=== PATIENT | male | born 1955 | race Caucasian/White ===

== ENCOUNTER → 2017-03-01 | Outpatient (CLI) | payer OTHER ==
[2017-03-01 13:33] LABS: INR 0.9
== END ==
LOC: M SMT 11:40
PROVIDERS: ATTEND Internal Medicine Pulmonary Disease
DX: R91.1 Solitary pulmonary nodule (principal)

== ENCOUNTER → 2017-03-13 | Outpatient (CLI) | payer OTHER ==
[~2017-03-13] MED LIST: LIDOCAINE 1% MDV 20ML VIAL As Ordered ONE
--- NOTE | 2017-03-13 12:14 | REP ---
CT study of the chest without IV contrast: Limited exam. History: The patient was referred to our facility for CT guided needle biopsy of the right upper lobe because a CT study from [facility] dated January 30, 2017 showed a spiculated mass in the right upper lobe. Findings: The patient was interviewed and informed consent was obtained for the biopsy by Adal Fulton. The patient was placed supine on the CT scanning table and initial CT imaging was performed to plan the needle biopsy root. This initial CT imaging demonstrates that the spiculated mass observed previously has virtually resolved. There is minimal linear fibrosis against the minor fissure in its location. Since the target has resolved, the anticipated biopsy was cancelled. Impression: Planned CT guided needle biopsy of the right lung was cancelled. It was felt to be unnecessary as the target lesion has virtually resolved with only minimal adjacent linear fibrosis. An additional follow-up chest CT study could be considered in 4-6 months' time. Signed by Reji Grey MD 03/13/2017 01:18 P
== END ==
LOC: M RADPRO 08:20
PROVIDERS: ATTEND Internal Medicine Pulmonary Disease
DX: R91.1 Solitary pulmonary nodule (principal); Z87.891 Personal history of nicotine dependence; Z88.0 Allergy status to penicillin; Z88.8 Allergy status to other drugs, medicaments and biological substances; Z79.899 Other long term (current) drug therapy

== ENCOUNTER → 2017-08-24 | Outpatient (REF) | payer OTHER ==
[2017-08-24 16:55] LABS: IMMUNOGLOBULIN A 86.3 MG/DL (70-400); IMMUNOGLOBULIN G 522 MG/DL (681-1648); IMMUNOGLOBULIN M 73.5 MG/DL (40-230)
[2017-08-28 14:14] LABS: IgG SERUM (part of Subclasses) 470 mg/dL (700-1600); IgG Subclass 1 256 mg/dL (248-810); IgG Subclass 2 234 mg/dL (130-555); IgG Subclass 3 31 mg/dL (15-102); IgG Subclass 4 47 mg/dL (2-96)
== END ==
LOC: M SFHCPLAZ 11:05
PROVIDERS: ATTEND Internal Medicine Infectious Disease
DX: J18.9 Pneumonia, unspecified organism (principal)
CPT/HCPCS: 36415; 82784; 82787; 87389; G0463

== ENCOUNTER 2019-10-02 12:54 | Outpatient (RCR) | payer MEDICARE, OTHER, SELFPAY | END 2019-10-18 | LOC: M PR 12:54 | DX: J43.2 Centrilobular emphysema (principal) ==

== ENCOUNTER 2022-11-24 13:41 | Emergency (ER) | payer MEDICARE ==
[~2022-11-24] VITALS: Ht 162.6 cm; Wt 56.4 kg
[2022-11-24] MEDS ORDERED: ALBU2.5V10 NEB (13:54)
[2022-11-24] MEDS ORDERED: PRED20TA PO (13:54)
[2022-11-24] MEDS ORDERED: TREL1AER PO (13:54)
[2022-11-24] MEDS ORDERED: methylPREDNISolone 125MG 2ML VIAL IV ONE (14:40)
[2022-11-24 15:14] LABS: BASO % 0.1 % (0.0-1.0); HEMATOCRIT 35.5 % (42.0-52.0); HEMOGLOBIN 11.6 g/dl (13.5-17.5); LYMPH # 0.3 10^3/uL (1.5-5.0); LYMPH % 2.4 % (24.0-44.0); MEAN CORPUSCULAR HEMOGLOBIN 33.7 pg (27.0-33.0); MEAN CORPUSCULAR HGB CONC 32.7 g/dl (32.0-36.5); MEAN CORPUSCULAR VOLUME 103.2 fl (80.0-96.0); MONO # 0.1 10^3/uL (0.0-0.8); MONO % 1.2 % (2.0-8.0); NEUTROPHILS # 10.5 10^3/uL (1.5-8.5); NEUTROPHILS % 95.6 % (36.0-66.0); PLATELET COUNT, AUTOMATED 284 10^3/uL (150-450); RED BLOOD COUNT 3.44 10^6/uL (4.30-6.10)
[2022-11-24 15:40] LABS: ALBUMIN 3.3 G/DL (3.2-5.2); ALKALINE PHOSPHATASE 69 U/L (46-116); ALT/SGPT 17 U/L (7.0-40); AST/SGOT 24 U/L (<34); BILIRUBIN,DIRECT 0.3 MG/DL (<0.4); BILIRUBIN,TOTAL 0.8 MG/DL (0.3-1.2); BLOOD UREA NITROGEN 25 MG/DL (9-23); CARBON DIOXIDE LEVEL 30 MMOL/L (20-31); CHLORIDE LEVEL 100 MMOL/L (98-107); CREATININE FOR GFR 0.62 MG/DL (0.70-1.30); GLOMERULAR FILTRATION RATE > 60.0 (>49); GLUCOSE, FASTING 142 MG/DL (74-106); POTASSIUM SERUM 4.3 MMOL/L (3.5-5.1); SODIUM LEVEL 139 MMOL/L (136-145); THYROID STIMULATING HORMONE 0.356 uIU/ML (0.55-4.78); THYROXINE (T4) 10.8 UG/DL (4.5-10.9); TOTAL PROTEIN 6.2 G/DL (5.7-8.2)
[2022-11-24] MEDS ORDERED: ALBUTEROL SULFATE 2.5MG/0.5ML INH NEB SOLN INH ONE (15:45)
[2022-11-24] MEDS ORDERED: IPRATROPIUM 0.5MG/ALBUTEROL 2.5MG INH SOL UD 3ML (DUONEB) NEB ONE (15:45)
[2022-11-24] MEDS ORDERED: ISOVUE-370 76% 100ML VIAL As Ordered ONE (15:48)
[2022-11-24 16:14] LABS: ABG BASE EXCESS -0.8 (-2.0-2.0); ABG HCO3 24.2 MEQ/L (22.0-26.0); ABG O2 SATURATION 98.7 % (95.0-99.0); ABG PARTIAL PRESSURE CO2 41.6 mmHg (35.0-45.0); ABG STANDARD HCO3 23.8 MEQ/L (22.0-26.0); ABG TOTAL CO2 25.5 MEQ/L (23.0-31.0); ABG pH (ARTERIAL) 7.383 UNITS (7.350-7.450)
[2022-11-24] MEDS ORDERED: PRED10TA2 PO (18:16)
[2022-11-24 18:31] VITALS: BP 134/79
== END 2022-11-24 18:38 | disposition home or self-care (01) ==
LOC: M ED 13:41
DX: J44.1 Chronic obstructive pulmonary disease with (acute) exacerbation (principal); J43.9 Emphysema, unspecified; F17.200 Nicotine dependence, unspecified, uncomplicated; Z88.0 Allergy status to penicillin
CPT/HCPCS: 36600; 71045; 71275; 80048; 80076; 82803; 83880; 84436; 84443; 84484; 85025; 87040; 87486; 87581; 87633; 87798; 93005; 93041; 94640; 94760; 96374; 99285; J2930; Q9967

== ENCOUNTER 2023-01-10 09:52 | Inpatient (IN) | payer MEDICARE ==
[~2023-01-10] VITALS: Ht 167.6 cm; Wt 51.6 kg
[~2023-01-10 09:52] MED LIST changes: +ALBU2.5V10 NEB; -LIDOCAINE 1% MDV 20ML VIAL As Ordered ONE; +PRED10TA2 PO; +PRED20TA PO; +TREL1AER PO
[2023-01-10 10:33] LABS: VENOUS PH 7.311 UNITS (7.330-7.430)
[2023-01-10 10:34] LABS: VENOUS BASE EXCESS 2.4 (-2.0-2.0); VENOUS HCO3 30.1 MEQ/L (23.0-27.0); VENOUS O2 SATURATION 58.3 % (60.0-80.0); VENOUS PARTIAL PRESSURE O2 34.6 mmHg (30.0-50.0); VENOUS STANDARD HCO3 25.7 MEQ/L
[2023-01-10 10:46] LABS: BASO % 0.3 % (0.0-1.0); EOS # 0.1 10^3/uL (0.0-0.5); EOS % 2.1 % (0.0-3.0); HEMATOCRIT 36.4 % (42.0-52.0); HEMOGLOBIN 11.9 g/dl (13.5-17.5); LYMPH # 0.5 10^3/uL (1.5-5.0); MEAN CORPUSCULAR HEMOGLOBIN 33.9 pg (27.0-33.0); MEAN CORPUSCULAR HGB CONC 32.7 g/dl (32.0-36.5); MEAN CORPUSCULAR VOLUME 103.7 fl (80.0-96.0); MONO # 0.6 10^3/uL (0.0-0.8); NEUTROPHILS # 5.4 10^3/uL (1.5-8.5); NEUTROPHILS % 81.2 % (36.0-66.0); PLATELET COUNT, AUTOMATED 189 10^3/uL (150-450); RED BLOOD COUNT 3.51 10^6/uL (4.30-6.10); WHITE BLOOD COUNT 6.7 10^3/uL (4.0-10.0)
[2023-01-10] MEDS: IPRATROPIUM 0.5MG/ALBUTEROL 2.5MG INH SOL UD 3ML (DUONEB) NEB SCH ×4 (10:55→20:48)
[2023-01-10 11:12] LABS: ALBUMIN 3.1 G/DL (3.2-5.2); ALKALINE PHOSPHATASE 80 U/L (46-116); ALT/SGPT 25 U/L (7.0-40); AST/SGOT 40 U/L (<34); BILIRUBIN,DIRECT 0.3 MG/DL (<0.4); BILIRUBIN,TOTAL 0.9 MG/DL (0.3-1.2); BLOOD UREA NITROGEN 19 MG/DL (9-23); CARBON DIOXIDE LEVEL 30 MMOL/L (20-31); CHLORIDE LEVEL 101 MMOL/L (98-107); CREATININE FOR GFR 0.71 MG/DL (0.70-1.30); GLOMERULAR FILTRATION RATE > 60.0 (>49); GLUCOSE, FASTING 108 MG/DL (74-106); POTASSIUM SERUM 3.8 MMOL/L (3.5-5.1); SODIUM LEVEL 140 MMOL/L (136-145); TOTAL PROTEIN 5.7 G/DL (5.7-8.2)
[2023-01-10 11:15] LABS: THYROID STIMULATING HORMONE 0.712 uIU/ML (0.55-4.78)
[2023-01-10] MEDS ORDERED: MELO7.5T35 PO (12:01)
[2023-01-10] MEDS ORDERED: ROFL500T PO (12:01)
[2023-01-10] MEDS ORDERED: FAMO40TA3 PO (12:01)
[2023-01-10] MEDS ORDERED: OXYC10TA12 PO (12:01)
[2023-01-10] MEDS ORDERED: DALI1TAB2 PO (12:01)
[2023-01-10] MEDS ORDERED: NORCO, ANEXSIA 5/325MG TABLET (HYDROcodone/ACETAMINOPHEN) PO ONE (12:30)
[2023-01-10] MEDS ORDERED: methylPREDNISolone 125MG 2ML VIAL IV ONE (12:35)
[2023-01-10] MEDS ORDERED: IPRATROPIUM 0.5MG/ALBUTEROL 2.5MG INH SOL UD 3ML (DUONEB) NEB PRN (14:55)
[2023-01-10] MEDS ORDERED: ALBU8.5H INH (15:00)
[2023-01-10] MEDS ORDERED: HOME MED LIST COMPLETE! XX SCH (15:05)
[2023-01-10] MEDS ORDERED: ISOVUE-370 76% 100ML VIAL As Ordered ONE (15:31)
[2023-01-10 16:12] LABS: ABG BASE EXCESS -0.1 (-2.0-2.0); ABG HCO3 24.8 MEQ/L (22.0-26.0); ABG O2 SATURATION 97.4 % (95.0-99.0); ABG PARTIAL PRESSURE CO2 41.6 mmHg (35.0-45.0); ABG PARTIAL PRESSURE O2 102.4 mmHg (75.0-100.0); ABG STANDARD HCO3 24.4 MEQ/L (22.0-26.0); ABG TOTAL CO2 26.1 MEQ/L (23.0-31.0); ABG pH (ARTERIAL) 7.394 UNITS (7.350-7.450)
[2023-01-10 16:41] LABS: CK-MB VALUE MASS 2.1 NG/ML (<3.6); MAGNESIUM LEVEL 1.7 MG/DL (1.8-2.4)
[2023-01-10 16:44] LABS: MB/CK RELATIVE INDEX 6.56 (< OR =4)
[2023-01-10 18:40] VITALS: BP 131/78
[2023-01-10] MEDS: AZITHROMYCIN 250MG TABLET PO SCH (18:44)
[2023-01-10] MEDS ORDERED: MAG SULF 1GM/100ML (MAG RUN) 1 GM in IV 1 EA IV ONE (18:50)
[2023-01-10] MEDS ORDERED: LORazepam 2 MG TAB PO PRN (19:45)
[2023-01-10 19:57] LABS: MB/CK RELATIVE INDEX 6.52 (< OR =4)
[2023-01-10 20:00] VITALS: BP 115/69
[2023-01-10 21:00] VITALS: BP 115/67
[2023-01-10] MEDS: THIAMINE 100 MG TAB PO SCH (21:22)
[2023-01-10] MEDS: guaiFENesin ER 600 MG TAB PO SCH (21:22)
[2023-01-10] MEDS: HEPARIN SOD (PORCINE) 5000UNITS/ML 1ML VIAL/SYRINGE SC SCH (21:22)
[2023-01-10 22:44] VITALS: O2SAT 96
[2023-01-11] MEDS: methylPREDNISolone 40MG 1ML VIAL IV SCH ×2 (01:11→13:00)
[2023-01-11] MEDS: IPRATROPIUM 0.5MG/ALBUTEROL 2.5MG INH SOL UD 3ML (DUONEB) NEB SCH ×4 (03:24→19:02)
[2023-01-11] MEDS: HEPARIN SOD (PORCINE) 5000UNITS/ML 1ML VIAL/SYRINGE SC SCH ×3 (05:35→21:34)
[2023-01-11 06:00] VITALS: BP 119/69
[2023-01-11 06:24] LABS: HEMATOCRIT 31.5 % (42.0-52.0); HEMOGLOBIN 10.2 g/dl (13.5-17.5); MEAN CORPUSCULAR HEMOGLOBIN 33.1 pg (27.0-33.0); MEAN CORPUSCULAR HGB CONC 32.4 g/dl (32.0-36.5); MEAN CORPUSCULAR VOLUME 102.3 fl (80.0-96.0); PLATELET COUNT, AUTOMATED 194 10^3/uL (150-450); RED BLOOD COUNT 3.08 10^6/uL (4.30-6.10); WHITE BLOOD COUNT 4.3 10^3/uL (4.0-10.0)
[2023-01-11 06:40] LABS: BLOOD UREA NITROGEN 22 MG/DL (9-23); CALCIUM LEVEL 8.2 MG/DL (8.3-10.6); CARBON DIOXIDE LEVEL 31 MMOL/L (20-31); CHLORIDE LEVEL 102 MMOL/L (98-107); CREATININE FOR GFR 0.65 MG/DL (0.70-1.30); GLOMERULAR FILTRATION RATE > 60.0 (>49); GLUCOSE, FASTING 116 MG/DL (74-106); SODIUM LEVEL 139 MMOL/L (136-145)
[2023-01-11] MEDS ORDERED: PANTOPRAZOLE 40MG TAB (PROTONIX) PO ONE (06:50)
[2023-01-11] MEDS: FAMOTIDINE 20 MG TAB PO SCH (08:43)
[2023-01-11] MEDS: FOLIC ACID 1MG TAB PO SCH (08:43)
[2023-01-11] MEDS: THIAMINE 100 MG TAB PO SCH ×2 (08:43→21:31)
[2023-01-11] MEDS: MULTIVITAMINS/MINERALS THERAP 1 TAB PO SCH (08:44)
[2023-01-11] MEDS: guaiFENesin ER 600 MG TAB PO SCH ×2 (08:44→21:31)
[2023-01-11] MEDS: oxyCODONE 5MG TAB PO PRN ×2 (08:48→15:24)
[2023-01-11 14:00] VITALS: BP 117/71
[2023-01-11] MEDS: AZITHROMYCIN 250MG TABLET PO SCH (18:16)
[2023-01-11 22:00] VITALS: BP 118/85
[2023-01-12] MEDS: methylPREDNISolone 40MG 1ML VIAL IV SCH (00:11)
[2023-01-12] MEDS: IPRATROPIUM 0.5MG/ALBUTEROL 2.5MG INH SOL UD 3ML (DUONEB) NEB SCH ×4 (00:30→20:45)
[2023-01-12] MEDS: HEPARIN SOD (PORCINE) 5000UNITS/ML 1ML VIAL/SYRINGE SC SCH (05:43)
[2023-01-12 06:00] VITALS: BP 132/85
[2023-01-12 06:27] LABS: HEMOGLOBIN 9.9 g/dl (13.5-17.5); MEAN CORPUSCULAR HEMOGLOBIN 34.1 pg (27.0-33.0); MEAN CORPUSCULAR VOLUME 103.4 fl (80.0-96.0); PLATELET COUNT, AUTOMATED 184 10^3/uL (150-450); WHITE BLOOD COUNT 7.5 10^3/uL (4.0-10.0)
[2023-01-12 06:59] LABS: BLOOD UREA NITROGEN 28 MG/DL (9-23); CALCIUM LEVEL 8.8 MG/DL (8.3-10.6); CARBON DIOXIDE LEVEL 31 MMOL/L (20-31); CHLORIDE LEVEL 102 MMOL/L (98-107); CREATININE FOR GFR 0.63 MG/DL (0.70-1.30); GLOMERULAR FILTRATION RATE > 60.0 (>49); GLUCOSE, FASTING 128 MG/DL (74-106); MAGNESIUM LEVEL 1.9 MG/DL (1.8-2.4); POTASSIUM SERUM 4.8 MMOL/L (3.5-5.1); SODIUM LEVEL 139 MMOL/L (136-145)
[2023-01-12] MEDS: FOLIC ACID 1MG TAB PO SCH (08:29)
[2023-01-12] MEDS: guaiFENesin ER 600 MG TAB PO SCH ×2 (08:29→20:25)
[2023-01-12] MEDS: MULTIVITAMINS/MINERALS THERAP 1 TAB PO SCH (08:30)
[2023-01-12] MEDS: FAMOTIDINE 20 MG TAB PO SCH (08:30)
[2023-01-12] MEDS: THIAMINE 100 MG TAB PO SCH (08:30)
[2023-01-12] MEDS: oxyCODONE 5MG TAB PO PRN (08:32)
[2023-01-12 09:00] VITALS: O2SAT 96
[2023-01-12] MEDS: SENOKOT S TAB PO SCH ×2 (09:39→20:25)
[2023-01-12] MEDS ORDERED: ACETAMINOPHEN TAB 650MG DOSE (2X325MG) PO PRN (12:15)
[2023-01-12] MEDS ORDERED: ONDANSETRON 4MG 2ML VIAL IV PRN (12:15)
[2023-01-12] MEDS ORDERED: LORazepam 1 MG TAB PO PRN (12:15)
[2023-01-12] MEDS ORDERED: ONDANSETRON 4MG ORAL DISINTEGRATING TAB PO PRN (12:15)
[2023-01-12] MEDS ORDERED: SCOPOLAMINE 1MG TRANSDERMAL PATCH TOP PRN (12:15)
[2023-01-12] MEDS ORDERED: BISACODYL 10MG SUPP PR PRN (12:15)
[2023-01-12] MEDS ORDERED: LORazepam 2 MG/ML 1ML VIAL IV PRN (12:15)
[2023-01-12] MEDS ORDERED: ACETAMINOPHEN 650MG SUPP PR PRN (12:15)
[2023-01-12] MEDS ORDERED: HYOSCYAMINE SULFATE 0.125 MG SUBL TABLET PO PRN (12:15)
[2023-01-12] MEDS ORDERED: ATROPINE SULFATE 1% OPHTH SOLN 2ML BTL SL PRN (12:15)
[2023-01-12] MEDS ORDERED: FLEET ENEMA PR PRN (12:15)
[2023-01-12] MEDS: MORPHINE 10MG/0.5ML ORAL CONCENTRATE SOLUTION U/D SL PRN (14:11)
[2023-01-12 14:33] LABS: CK-MB VALUE MASS 2.1 NG/ML (<3.6)
[2023-01-12 14:35] LABS: MB/CK RELATIVE INDEX 6.56 (< OR =4)
[2023-01-12 17:08] LABS: MYCOPLASMA PNEUMONIAE IgG <100 U/mL (0-99); MYCOPLASMA PNEUMONIAE IgM <770 U/mL (0-769)
[2023-01-12] MEDS: MORPHINE 2 MG/ML 1ML VIAL IV PRN (17:51)
[2023-01-13] MEDS: IPRATROPIUM 0.5MG/ALBUTEROL 2.5MG INH SOL UD 3ML (DUONEB) NEB SCH ×4 (01:10→20:25)
[2023-01-13] MEDS: oxyCODONE 5MG TAB PO PRN ×2 (07:24→17:18)
[2023-01-13] MEDS: ADVAIR HFA 230/21MCG INHALER INH SCH ×2 (08:00→20:00)
[2023-01-13] MEDS: MORPHINE 10MG/0.5ML ORAL CONCENTRATE SOLUTION U/D SL PRN ×3 (09:52→14:19)
[2023-01-13] MEDS: guaiFENesin ER 600 MG TAB PO SCH ×2 (09:52→20:05)
[2023-01-13] MEDS: SENOKOT S TAB PO SCH ×2 (09:52→20:05)
[2023-01-13] MEDS: MORPHINE 2 MG/ML 1ML VIAL IV PRN (21:39)
[2023-01-14] MEDS: IPRATROPIUM 0.5MG/ALBUTEROL 2.5MG INH SOL UD 3ML (DUONEB) NEB SCH ×4 (01:26→19:57)
[2023-01-14] MEDS: oxyCODONE 5MG TAB PO PRN ×2 (03:23→11:51)
[2023-01-14] MEDS: ADVAIR HFA 230/21MCG INHALER INH SCH ×2 (07:20→19:57)
[2023-01-14] MEDS: MORPHINE 2 MG/ML 1ML VIAL IV PRN (08:08)
[2023-01-14] MEDS: SENOKOT S TAB PO SCH ×2 (08:18→20:16)
[2023-01-14] MEDS: guaiFENesin ER 600 MG TAB PO SCH ×2 (08:18→20:16)
[2023-01-14] MEDS ORDERED: PILL CUTTER 1 EACH XX ONE (19:39)
[2023-01-14] MEDS: MORPHINE 30 MG TAB **MSIR PO PRN (19:45)
[2023-01-14] MEDS ORDERED: methylPREDNISolone 40MG 1ML VIAL IV ONE (19:50)
[2023-01-14 20:28] VITALS: BP 110/76
[2023-01-14] MEDS ORDERED: KETOROLAC 30 MG/ML 1ML VIAL IV ONE (20:40)
[2023-01-14] MEDS ORDERED: METOCLOPRAMIDE INJ 10MG/2ML VIAL IV ONE (20:40)
[2023-01-14 22:00] VITALS: BP 128/102
[2023-01-15 02:35] VITALS: BP 100/70
[2023-01-15] MEDS: IPRATROPIUM 0.5MG/ALBUTEROL 2.5MG INH SOL UD 3ML (DUONEB) NEB SCH ×4 (02:41→19:38)
[2023-01-15 06:00] VITALS: BP 99/56
[2023-01-15] MEDS: ADVAIR HFA 230/21MCG INHALER INH SCH ×2 (07:16→19:38)
[2023-01-15] MEDS: TIOTROPIUM INHALER/CAPSULE (SPIRIVA) INH SCH (07:16)
[2023-01-15] MEDS: methylPREDNISolone 40MG 1ML VIAL IV SCH (09:07)
[2023-01-15] MEDS: SENOKOT S TAB PO SCH ×2 (09:08→20:12)
[2023-01-15] MEDS: guaiFENesin ER 600 MG TAB PO SCH ×2 (09:09→20:12)
[2023-01-15] MEDS: MORPHINE 30 MG TAB **MSIR PO PRN (09:09)
[2023-01-15 09:34] VITALS: O2SAT 96
[2023-01-15] MEDS ORDERED: SENNA 8.6 MG TAB (SENOKOT) PO PRN (12:20)
[2023-01-15] MEDS ORDERED: MIRALAX *UNIT DOSE* 17GM PACKET PO PRN (12:20)
[2023-01-15 14:00] VITALS: BP 120/74
[2023-01-15 20:00] VITALS: BP 111/67
[2023-01-16] MEDS: IPRATROPIUM 0.5MG/ALBUTEROL 2.5MG INH SOL UD 3ML (DUONEB) NEB SCH ×2 (00:49→07:43)
[2023-01-16] MEDS: MORPHINE 30 MG TAB **MSIR PO PRN (01:14)
[2023-01-16] MEDS ORDERED: KETOROLAC 30 MG/ML 1ML VIAL IV ONE (03:20)
[2023-01-16 06:00] VITALS: BP 101/65
[2023-01-16] MEDS: TIOTROPIUM INHALER/CAPSULE (SPIRIVA) INH SCH (07:41)
[2023-01-16] MEDS: ADVAIR HFA 230/21MCG INHALER INH SCH (07:42)
[2023-01-16] MEDS: SENOKOT S TAB PO SCH (09:23)
[2023-01-16] MEDS: guaiFENesin ER 600 MG TAB PO SCH (09:23)
[2023-01-16] MEDS: methylPREDNISolone 40MG 1ML VIAL IV SCH (09:23)
[2023-01-16] MEDS ORDERED: MORP1SOL5 PO (10:14)
[2023-01-16] MEDS ORDERED: MSIR30TA PO (10:14)
[2023-01-16] MEDS ORDERED: BENZ200C70 PO (10:15)
[2023-01-16] MEDS ORDERED: OXYC10TA12 PO (10:17)
[2023-01-16 17:07] LABS: CHLAMYDIA PNEUMONIAE IgM <1:10 (< 1:10); CHLAMYDIA PSITTACI IgG <1:100 (< 1:100); CHLAMYDIA PSITTACI IgM <1:10 (< 1:10); CHLAMYDIA TRACHOMATIS IgG <1:100 (< 1:100); CHLAMYDIA TRACHOMATIS IgM <1:10 (< 1:10)
[2023-01-17] MEDS ORDERED: SENN-186 PO (16:38)
== END 2023-01-16 13:37 | disposition home health service (06) | DRG 202 ==
LOC: M ED 09:52 → EDBD 09:52 → M ED INP 16:51 → M MSPAV 18:32
PROVIDERS: ADMIT Internal Medicine; ATTEND Internal Medicine
PROC: B246ZZZ Ultrasonography of Right and Left Heart (ICD-10-PCS; principal; 2023-01-13)
DX: J20.6 Acute bronchitis due to rhinovirus (principal); J96.21 Acute and chronic respiratory failure with hypoxia; J96.22 Acute and chronic respiratory failure with hypercapnia; J44.0 Chronic obstructive pulmonary disease with (acute) lower respiratory infection; S22.050A Wedge compression fracture of T5-T6 vertebra, initial encounter for closed fracture; S22.080A Wedge compression fracture of T11-T12 vertebra, initial encounter for closed fracture; E87.29 Other acidosis; J44.1 Chronic obstructive pulmonary disease with (acute) exacerbation; F10.20 Alcohol dependence, uncomplicated; R07.89 Other chest pain; N28.1 Cyst of kidney, acquired; Z20.822 Contact with and (suspected) exposure to COVID-19; Z79.899 Other long term (current) drug therapy; Z88.0 Allergy status to penicillin; Z88.1 Allergy status to other antibiotic agents; Z87.891 Personal history of nicotine dependence; Z66 Do not resuscitate

== ENCOUNTER → 2023-01-17 | Outpatient (CLI) | payer MEDICARE ==
[~2023-01-17] MED LIST changes: +ALBU8.5H INH; +BENZ200C70 PO; +DALI1TAB2 PO; +FAMO40TA3 PO; +MELO7.5T35 PO; +MORP1SOL5 PO; +MSIR30TA PO; +OXYC10TA12 PO; +ROFL500T PO; +SENN-186 PO
== END ==
LOC: M PAL 11:33
PROVIDERS: ATTEND Nurse Practitioner Adult Health
DX: J44.9 Chronic obstructive pulmonary disease, unspecified (principal); M54.9 Dorsalgia, unspecified; Z99.81 Dependence on supplemental oxygen; H90.5 Unspecified sensorineural hearing loss; Z87.891 Personal history of nicotine dependence; S22.059A Unspecified fracture of T5-T6 vertebra, initial encounter for closed fracture; S22.089A Unspecified fracture of T11-T12 vertebra, initial encounter for closed fracture; Z51.5 Encounter for palliative care; F10.10 Alcohol abuse, uncomplicated; K59.00 Constipation, unspecified; R41.841 Cognitive communication deficit; Z88.0 Allergy status to penicillin; Z88.1 Allergy status to other antibiotic agents; Z79.891 Long term (current) use of opiate analgesic; Z79.899 Other long term (current) drug therapy; Z79.51 Long term (current) use of inhaled steroids

== ENCOUNTER → 2023-01-19 | Outpatient (CLI) | payer MEDICARE ==
[~2023-01-19] MED LIST changes: +ALFU10TA3 PO; +ATRO0.063 INH; +BUSP5TA PO
== END ==
LOC: M PAL 12:29
PROVIDERS: ATTEND Nurse Practitioner Adult Health
DX: J44.9 Chronic obstructive pulmonary disease, unspecified (principal); Z99.81 Dependence on supplemental oxygen; Z87.891 Personal history of nicotine dependence; S22.059D Unspecified fracture of T5-T6 vertebra, subsequent encounter for fracture with routine healing; S22.089D Unspecified fracture of T11-T12 vertebra, subsequent encounter for fracture with routine healing; Z51.5 Encounter for palliative care; F41.9 Anxiety disorder, unspecified; F10.10 Alcohol abuse, uncomplicated; F09 Unspecified mental disorder due to known physiological condition; R13.10 Dysphagia, unspecified; H90.5 Unspecified sensorineural hearing loss; K59.00 Constipation, unspecified; R53.81 Other malaise; Z87.01 Personal history of pneumonia (recurrent); Z79.51 Long term (current) use of inhaled steroids; Z79.891 Long term (current) use of opiate analgesic; Z66 Do not resuscitate; Z88.0 Allergy status to penicillin; Z88.1 Allergy status to other antibiotic agents

== ENCOUNTER 2023-01-23 11:44 | Inpatient (IN) | payer MEDICARE ==
[~2023-01-23] VITALS: Ht 162.6 cm; Wt 52.6 kg
[~2023-01-23 11:44] MED LIST changes: -ALFU10TA3 PO; -ATRO0.063 INH; -BUSP5TA PO
[2023-01-23] MEDS ORDERED: BUSP5TA PO (12:09)
[2023-01-23 12:38] LABS: VENOUS BASE EXCESS 3.7 (-2.0-2.0); VENOUS HCO3 29.1 MMOL/L (23.0-27.0); VENOUS O2 SATURATION 98.4 % (60.0-80.0); VENOUS PARTIAL PRESSURE CO2 47.8 mmHg (38.0-50.0); VENOUS PARTIAL PRESSURE O2 138.4 mmHg (30.0-50.0); VENOUS PH 7.403 UNITS (7.330-7.430); VENOUS STANDARD HCO3 27.8 MMOL/L; VENOUS TOTAL CO2 30.6 MMOL/L (24.0-28.0)
[2023-01-23 12:44] LABS: BASO # 0.1 10^3/uL (0.0-0.2); BASO % 0.3 % (0.0-1.0); EOS # 0.1 10^3/uL (0.0-0.5); EOS % 0.3 % (0.0-3.0); HEMATOCRIT 30.8 % (42.0-52.0); LYMPH # 0.5 10^3/uL (1.5-5.0); LYMPH % 2.3 % (24.0-44.0); MEAN CORPUSCULAR HGB CONC 32.5 g/dl (32.0-36.5); MEAN CORPUSCULAR VOLUME 104.8 fl (80.0-96.0); MONO # 1.4 10^3/uL (0.0-0.8); MONO % 5.7 % (2.0-8.0); NEUTROPHILS # 21.5 10^3/uL (1.5-8.5); NEUTROPHILS % 90.6 % (36.0-66.0); PLATELET COUNT, AUTOMATED 313 10^3/uL (150-450); RED BLOOD COUNT 2.94 10^6/uL (4.30-6.10); WHITE BLOOD COUNT 23.7 10^3/uL (4.0-10.0)
[2023-01-23 13:12] LABS: ALBUMIN 2.5 G/DL (3.2-5.2); ALKALINE PHOSPHATASE 82 U/L (46-116); ALT/SGPT 21 U/L (7.0-40); AST/SGOT 25 U/L (<34); BILIRUBIN,DIRECT 0.7 MG/DL (<0.4); BILIRUBIN,TOTAL 1.5 MG/DL (0.3-1.2); BLOOD UREA NITROGEN 17 MG/DL (9-23); CALCIUM LEVEL 8.6 MG/DL (8.3-10.6); CARBON DIOXIDE LEVEL 33 MMOL/L (20-31); CHLORIDE LEVEL 104 MMOL/L (98-107); CREATININE FOR GFR 0.69 MG/DL (0.70-1.30); GLOMERULAR FILTRATION RATE > 60.0 (>49); GLUCOSE, FASTING 109 MG/DL (74-106); POTASSIUM SERUM 4.1 MMOL/L (3.5-5.1); SODIUM LEVEL 142 MMOL/L (136-145); TOTAL PROTEIN 5.1 G/DL (5.7-8.2)
[2023-01-23] MEDS ORDERED: IPRATROPIUM 0.02% SOLN 0.5MG 2.5ML NEB NEB ONE (13:20)
[2023-01-23] MEDS ORDERED: ALBUTEROL SULFATE 2.5MG/0.5ML INH NEB SOLN NEB ONE (13:20)
[2023-01-23] MEDS ORDERED: cefTRIAXone SOD 1 GM in D5W MINI-BAG PLUS 50 ML IV ONE ×2 (13:25→14:55)
[2023-01-23] MEDS ORDERED: AZITHROMYCIN 250MG TABLET PO ONE (13:25)
[2023-01-23 13:58] LABS: CK-MB VALUE MASS 5.4 NG/ML (<3.6)
[2023-01-23 13:59] LABS: CPK CREATINE PHOSPHOKINASE 153 U/L (46-171); MB/CK RELATIVE INDEX 3.52 (< OR =4)
[2023-01-23 14:03] LABS: CK-MB VALUE MASS 4.9 NG/ML (<3.6)
[2023-01-23 14:05] LABS: MB/CK RELATIVE INDEX 3.42 (< OR =4)
[2023-01-23] MEDS ORDERED: ISOVUE-370 76% 100ML VIAL As Ordered ONE (14:27)
[2023-01-23] MEDS ORDERED: BENZ200C70 PO (15:23)
[2023-01-23] MEDS ORDERED: ATRO0.063 INH (15:23)
[2023-01-23] MEDS ORDERED: OXYC10TA12 PO (15:23)
[2023-01-23] MEDS ORDERED: MSIR30TA PO (15:23)
[2023-01-23] MEDS ORDERED: ROFL500T PO (15:23)
[2023-01-23] MEDS ORDERED: ALFU10TA3 PO (15:23)
[2023-01-23] MEDS ORDERED: HOME MED LIST COMPLETE! XX SCH (15:25)
[2023-01-23 16:40] LABS: CK-MB VALUE MASS 5.2 NG/ML (<3.6)
[2023-01-23 16:43] LABS: MB/CK RELATIVE INDEX 3.19 (< OR =4)
[2023-01-23] MEDS ORDERED: SENNA 8.6 MG TAB (SENOKOT) PO PRN (17:45)
[2023-01-23] MEDS ORDERED: PILL CUTTER 1 EACH XX PRN (18:25)
[2023-01-23 20:00] VITALS: O2SAT 95
[2023-01-23] MEDS: ALBUTEROL SULFATE 2.5MG/0.5ML INH NEB SOLN NEB SCH (20:00)
[2023-01-23] MEDS: ADVAIR HFA 115/21MCG INHALER INH SCH (20:00)
[2023-01-23] MEDS: BENZONATATE 100MG CAPSULE PO SCH (20:19)
[2023-01-23] MEDS: CEFEPIME HCL 2 GM in D5W MINI-BAG PLUS 50 ML IV SCH (20:19)
[2023-01-23] MEDS: DOCUSATE SODIUM 100MG CAPSULE PO SCH (20:19)
[2023-01-23] MEDS: busPIRone 5 MG TAB PO SCH (20:23)
[2023-01-23 20:45] LABS: INR 0.98; PROTHROMBIN TIME 13.2 SECONDS (12.5-14.5)
[2023-01-23 21:00] VITALS: O2SAT 96
[2023-01-23 21:37] VITALS: BP 125/70
[2023-01-23 22:00] VITALS: O2SAT 88
[2023-01-23 23:00] VITALS: O2SAT 97
[2023-01-24] VITALS (16 sets, daily range): BP systolic 82–124; BP diastolic 56–70; O2SAT 93–99
[2023-01-24] MEDS: IPRATROPIUM HFA INHALER 12.9 GRAMS (ATROVENT HFA) INH SCH ×5 (00:48→20:07)
[2023-01-24] MEDS: ALBUTEROL SULFATE 2.5MG/0.5ML INH NEB SOLN NEB SCH ×7 (00:48→23:23)
[2023-01-24] MEDS: CEFEPIME HCL 2 GM in D5W MINI-BAG PLUS 50 ML IV SCH ×3 (05:02→22:05)
[2023-01-24 05:54] LABS: BASO % 0.1 % (0.0-1.0); HEMOGLOBIN 9.5 g/dl (13.5-17.5); LYMPH # 0.4 10^3/uL (1.5-5.0); LYMPH % 2.7 % (24.0-44.0); MEAN CORPUSCULAR HEMOGLOBIN 34.1 pg (27.0-33.0); MEAN CORPUSCULAR HGB CONC 32.8 g/dl (32.0-36.5); MEAN CORPUSCULAR VOLUME 103.9 fl (80.0-96.0); MONO # 0.3 10^3/uL (0.0-0.8); NEUTROPHILS # 13.2 10^3/uL (1.5-8.5); NEUTROPHILS % 93.7 % (36.0-66.0); PLATELET COUNT, AUTOMATED 285 10^3/uL (150-450); RED BLOOD COUNT 2.79 10^6/uL (4.30-6.10); WHITE BLOOD COUNT 14.1 10^3/uL (4.0-10.0)
[2023-01-24 06:18] LABS: BLOOD UREA NITROGEN 22 MG/DL (9-23); CALCIUM LEVEL 8.3 MG/DL (8.3-10.6); CARBON DIOXIDE LEVEL 32 MMOL/L (20-31); CHLORIDE LEVEL 103 MMOL/L (98-107); CREATININE FOR GFR 0.55 MG/DL (0.70-1.30); GLOMERULAR FILTRATION RATE > 60.0 (>49); GLUCOSE, FASTING 168 MG/DL (74-106); POTASSIUM SERUM 4.6 MMOL/L (3.5-5.1); SODIUM LEVEL 139 MMOL/L (136-145)
[2023-01-24] MEDS: ADVAIR HFA 115/21MCG INHALER INH SCH ×2 (07:46→20:07)
[2023-01-24] MEDS: MIRALAX *UNIT DOSE* 17GM PACKET PO SCH (09:00)
[2023-01-24] MEDS: ROFLUMILAST 500 MCG TABLET (PATIENT'S OWN MED) PO SCH (09:00)
[2023-01-24] MEDS: ENOXAPARIN 40MG/0.4ML SYRINGE (J1650 PER 10MG) SC SCH (09:05)
[2023-01-24] MEDS: DOCUSATE SODIUM 100MG CAPSULE PO SCH ×2 (09:06→22:04)
[2023-01-24] MEDS: BENZONATATE 100MG CAPSULE PO SCH ×3 (09:06→22:04)
[2023-01-24] MEDS: AZITHROMYCIN 250MG TABLET PO SCH (09:06)
[2023-01-24] MEDS: FAMOTIDINE 20 MG TAB PO SCH (09:06)
[2023-01-24] MEDS: busPIRone 5 MG TAB PO SCH ×3 (09:14→22:04)
[2023-01-24] MEDS: guaiFENesin/CODEINE SYRUP 5 ML UDC PO PRN (16:32)
[2023-01-24] MEDS: ONDANSETRON 4MG ORAL DISINTEGRATING TAB SL PRN (16:32)
[2023-01-24] MEDS ORDERED: NS 500 ML IV ONE (21:50)
[2023-01-25 01:10] VITALS: BP 102/60
[2023-01-25] MEDS: ALBUTEROL SULFATE 2.5MG/0.5ML INH NEB SOLN NEB SCH ×6 (02:39→23:24)
[2023-01-25] MEDS: CEFEPIME HCL 2 GM in D5W MINI-BAG PLUS 50 ML IV SCH ×3 (05:00→21:36)
[2023-01-25] MEDS: guaiFENesin/CODEINE SYRUP 5 ML UDC PO PRN (05:00)
[2023-01-25 05:40] VITALS: BP 100/63
[2023-01-25 06:06] LABS: BASO % 0.1 % (0.0-1.0); EOS % 0.1 % (0.0-3.0); HEMATOCRIT 28.3 % (42.0-52.0); LYMPH # 0.7 10^3/uL (1.5-5.0); LYMPH % 4.6 % (24.0-44.0); MEAN CORPUSCULAR HEMOGLOBIN 33.6 pg (27.0-33.0); MEAN CORPUSCULAR HGB CONC 31.8 g/dl (32.0-36.5); MEAN CORPUSCULAR VOLUME 105.6 fl (80.0-96.0); MONO # 0.6 10^3/uL (0.0-0.8); MONO % 4.3 % (2.0-8.0); NEUTROPHILS # 13.2 10^3/uL (1.5-8.5); NEUTROPHILS % 89.9 % (36.0-66.0); PLATELET COUNT, AUTOMATED 305 10^3/uL (150-450); RED BLOOD COUNT 2.68 10^6/uL (4.30-6.10); WHITE BLOOD COUNT 14.7 10^3/uL (4.0-10.0)
[2023-01-25 06:21] LABS: BLOOD UREA NITROGEN 20 MG/DL (9-23); CALCIUM LEVEL 8.2 MG/DL (8.3-10.6); CARBON DIOXIDE LEVEL 31 MMOL/L (20-31); CHLORIDE LEVEL 105 MMOL/L (98-107); CREATININE FOR GFR 0.64 MG/DL (0.70-1.30); GLOMERULAR FILTRATION RATE > 60.0 (>49); GLUCOSE, FASTING 101 MG/DL (74-106); POTASSIUM SERUM 3.8 MMOL/L (3.5-5.1); SODIUM LEVEL 139 MMOL/L (136-145)
[2023-01-25] MEDS ORDERED: guaiFENesin/CODEINE SYRUP 5 ML UDC PO PRN (07:35)
[2023-01-25] MEDS: IPRATROPIUM HFA INHALER 12.9 GRAMS (ATROVENT HFA) INH SCH ×4 (08:00→20:04)
[2023-01-25] MEDS: ADVAIR HFA 115/21MCG INHALER INH SCH ×2 (08:07→20:15)
[2023-01-25] MEDS: MIRALAX *UNIT DOSE* 17GM PACKET PO SCH (09:00)
[2023-01-25] MEDS: AZITHROMYCIN 250MG TABLET PO SCH (09:16)
[2023-01-25] MEDS: BENZONATATE 100MG CAPSULE PO SCH ×3 (09:17→21:35)
[2023-01-25] MEDS: DOCUSATE SODIUM 100MG CAPSULE PO SCH ×2 (09:17→21:35)
[2023-01-25] MEDS: FAMOTIDINE 20 MG TAB PO SCH (09:17)
[2023-01-25] MEDS: ROFLUMILAST 500 MCG TABLET (PATIENT'S OWN MED) PO SCH (09:18)
[2023-01-25] MEDS: ALFUZOSIN HCL 10 MG PO SCH (09:18)
[2023-01-25] MEDS: ENOXAPARIN 40MG/0.4ML SYRINGE (J1650 PER 10MG) SC SCH (09:18)
[2023-01-25] MEDS: busPIRone 5 MG TAB PO SCH ×3 (09:21→21:35)
[2023-01-25 14:00] VITALS: BP 106/67
[2023-01-25] MEDS: MORPHINE 30 MG TAB **MSIR PO PRN (14:12)
[2023-01-25 20:10] VITALS: BP 99/62
[2023-01-25 21:43] VITALS: BP 96/52
[2023-01-25 23:48] LABS: MAGNESIUM LEVEL 1.9 MG/DL (1.8-2.4)
[2023-01-26 02:00] VITALS: BP 97/61
[2023-01-26] MEDS: ALBUTEROL SULFATE 2.5MG/0.5ML INH NEB SOLN NEB SCH ×6 (03:28→22:45)
[2023-01-26] MEDS: BENZONATATE 100MG CAPSULE PO SCH ×3 (05:34→20:15)
[2023-01-26] MEDS: CEFEPIME HCL 2 GM in D5W MINI-BAG PLUS 50 ML IV SCH ×3 (05:34→20:16)
[2023-01-26 07:17] LABS: BASO % 0.3 % (0.0-1.0); EOS # 0.1 10^3/uL (0.0-0.5); EOS % 1.2 % (0.0-3.0); HEMATOCRIT 29.9 % (42.0-52.0); HEMOGLOBIN 9.5 g/dl (13.5-17.5); LYMPH # 0.7 10^3/uL (1.5-5.0); LYMPH % 6.4 % (24.0-44.0); MEAN CORPUSCULAR HEMOGLOBIN 34.2 pg (27.0-33.0); MEAN CORPUSCULAR HGB CONC 31.8 g/dl (32.0-36.5); MEAN CORPUSCULAR VOLUME 107.6 fl (80.0-96.0); MONO # 0.6 10^3/uL (0.0-0.8); MONO % 5.5 % (2.0-8.0); NEUTROPHILS # 9.6 10^3/uL (1.5-8.5); NEUTROPHILS % 85.4 % (36.0-66.0); PLATELET COUNT, AUTOMATED 320 10^3/uL (150-450); RED BLOOD COUNT 2.78 10^6/uL (4.30-6.10); WHITE BLOOD COUNT 11.2 10^3/uL (4.0-10.0)
[2023-01-26 07:43] LABS: BLOOD UREA NITROGEN 20 MG/DL (9-23); CALCIUM LEVEL 8.7 MG/DL (8.3-10.6); CARBON DIOXIDE LEVEL 32 MMOL/L (20-31); CHLORIDE LEVEL 105 MMOL/L (98-107); CREATININE FOR GFR 0.65 MG/DL (0.70-1.30); GLOMERULAR FILTRATION RATE > 60.0 (>49); GLUCOSE, FASTING 93 MG/DL (74-106); POTASSIUM SERUM 4.3 MMOL/L (3.5-5.1); SODIUM LEVEL 142 MMOL/L (136-145)
[2023-01-26 09:00] VITALS: BP 141/77
[2023-01-26] MEDS: METAMUCIL (PSYLLIUM) PACKET PO SCH ×2 (09:00→11:25)
[2023-01-26] MEDS: ADVAIR HFA 115/21MCG INHALER INH SCH ×2 (09:02→19:56)
[2023-01-26] MEDS: IPRATROPIUM HFA INHALER 12.9 GRAMS (ATROVENT HFA) INH SCH ×4 (09:02→19:57)
[2023-01-26] MEDS: ROFLUMILAST 500 MCG TABLET (PATIENT'S OWN MED) PO SCH (09:04)
[2023-01-26] MEDS: ALFUZOSIN HCL 10 MG PO SCH (09:04)
[2023-01-26] MEDS: busPIRone 5 MG TAB PO SCH ×3 (09:05→20:15)
[2023-01-26] MEDS: ENOXAPARIN 40MG/0.4ML SYRINGE (J1650 PER 10MG) SC SCH (09:05)
[2023-01-26] MEDS: FAMOTIDINE 20 MG TAB PO SCH (09:05)
[2023-01-26] MEDS: DOCUSATE SODIUM 100MG CAPSULE PO SCH ×2 (09:05→20:18)
[2023-01-26] MEDS: MIRALAX *UNIT DOSE* 17GM PACKET PO SCH (09:05)
[2023-01-26] MEDS: LACTOBACILLUS ACIDOPHILUS CAP (BACID) PO SCH (11:24)
[2023-01-26] MEDS: ONDANSETRON 4MG ORAL DISINTEGRATING TAB SL PRN (12:45)
[2023-01-26 14:00] VITALS: BP 121/92
[2023-01-26 14:10] LABS: BODY FLUID CULTURE Not indicated. (.); LEGIONELLA ANTIGEN URINE Negative (Negative); ORGANISM ID Not indicated. (.); SPECIMEN SOURCE Urine (.); URINE STREP PNEUMONIAE ANTIGEN Negative (Negative)
[2023-01-26] MEDS: MOM 30ML SUSPENSION UDC PO PRN (18:00)
[2023-01-26] MEDS: oxyCODONE 5MG TAB PO PRN (18:02)
[2023-01-26 20:00] VITALS: BP 110/63
[2023-01-26] MEDS: ACETAMINOPHEN TAB 650MG DOSE (2X325MG) PO PRN (20:16)
[2023-01-27] MEDS: ALBUTEROL SULFATE 2.5MG/0.5ML INH NEB SOLN NEB SCH ×8 (03:01→23:24)
[2023-01-27] MEDS: CEFEPIME HCL 2 GM in D5W MINI-BAG PLUS 50 ML IV SCH ×3 (05:11→20:57)
[2023-01-27] MEDS: BENZONATATE 100MG CAPSULE PO SCH ×3 (05:12→20:57)
[2023-01-27 06:00] VITALS: BP 127/71
[2023-01-27] MEDS: IPRATROPIUM HFA INHALER 12.9 GRAMS (ATROVENT HFA) INH SCH ×5 (07:07→19:46)
[2023-01-27] MEDS: ADVAIR HFA 115/21MCG INHALER INH SCH ×2 (07:07→19:46)
[2023-01-27 07:14] LABS: BASO # 0.1 10^3/uL (0.0-0.2); BASO % 0.4 % (0.0-1.0); EOS # 0.2 10^3/uL (0.0-0.5); EOS % 1.8 % (0.0-3.0); HEMATOCRIT 29.6 % (42.0-52.0); HEMOGLOBIN 9.1 g/dl (13.5-17.5); LYMPH # 0.6 10^3/uL (1.5-5.0); LYMPH % 5.3 % (24.0-44.0); MEAN CORPUSCULAR HEMOGLOBIN 33.1 pg (27.0-33.0); MEAN CORPUSCULAR HGB CONC 30.7 g/dl (32.0-36.5); MEAN CORPUSCULAR VOLUME 107.6 fl (80.0-96.0); MONO # 0.6 10^3/uL (0.0-0.8); MONO % 5.3 % (2.0-8.0); NEUTROPHILS # 9.7 10^3/uL (1.5-8.5); NEUTROPHILS % 86.2 % (36.0-66.0); PLATELET COUNT, AUTOMATED 280 10^3/uL (150-450); RED BLOOD COUNT 2.75 10^6/uL (4.30-6.10); WHITE BLOOD COUNT 11.2 10^3/uL (4.0-10.0)
[2023-01-27 07:39] LABS: BLOOD UREA NITROGEN 20 MG/DL (9-23); CALCIUM LEVEL 8.2 MG/DL (8.3-10.6); CARBON DIOXIDE LEVEL 32 MMOL/L (20-31); CHLORIDE LEVEL 105 MMOL/L (98-107); CREATININE FOR GFR 0.66 MG/DL (0.70-1.30); GLOMERULAR FILTRATION RATE > 60.0 (>49); GLUCOSE, FASTING 90 MG/DL (74-106); MAGNESIUM LEVEL 2.1 MG/DL (1.8-2.4); POTASSIUM SERUM 4.4 MMOL/L (3.5-5.1); SODIUM LEVEL 141 MMOL/L (136-145)
[2023-01-27] MEDS: FAMOTIDINE 20 MG TAB PO SCH (09:06)
[2023-01-27] MEDS: LACTOBACILLUS ACIDOPHILUS CAP (BACID) PO SCH (09:06)
[2023-01-27] MEDS: oxyCODONE 5MG TAB PO PRN (09:06)
[2023-01-27] MEDS: MIRALAX *UNIT DOSE* 17GM PACKET PO SCH ×2 (09:07→21:00)
[2023-01-27] MEDS: ALFUZOSIN HCL 10 MG PO SCH (09:07)
[2023-01-27] MEDS: METAMUCIL (PSYLLIUM) PACKET PO SCH ×2 (09:07→21:00)
[2023-01-27] MEDS: ROFLUMILAST 500 MCG TABLET (PATIENT'S OWN MED) PO SCH (09:07)
[2023-01-27] MEDS: ENOXAPARIN 40MG/0.4ML SYRINGE (J1650 PER 10MG) SC SCH (09:11)
[2023-01-27] MEDS: DOCUSATE SODIUM 100MG CAPSULE PO SCH ×2 (09:13→20:56)
[2023-01-27] MEDS: busPIRone 5 MG TAB PO SCH (09:13)
[2023-01-27 14:00] VITALS: BP 106/70
[2023-01-27] MEDS: MOM 30ML SUSPENSION UDC PO PRN (15:04)
[2023-01-27] MEDS: busPIRone 10 MG TAB PO SCH ×2 (16:41→20:56)
[2023-01-27] MEDS: MORPHINE 10MG/0.5ML ORAL CONCENTRATE SOLUTION U/D PO PRN (21:00)
[2023-01-27 21:10] VITALS: BP 123/74
[2023-01-28] MEDS: ALBUTEROL SULFATE 2.5MG/0.5ML INH NEB SOLN NEB SCH ×6 (03:00→23:31)
[2023-01-28] MEDS: CEFEPIME HCL 2 GM in D5W MINI-BAG PLUS 50 ML IV SCH ×3 (05:15→21:53)
[2023-01-28] MEDS: BENZONATATE 100MG CAPSULE PO SCH ×3 (05:15→21:53)
[2023-01-28] MEDS: MORPHINE 10MG/0.5ML ORAL CONCENTRATE SOLUTION U/D PO PRN ×2 (05:30→23:57)
[2023-01-28 06:00] VITALS: BP 118/72
[2023-01-28 06:14] LABS: BASO # 0.1 10^3/uL (0.0-0.2); BASO % 0.6 % (0.0-1.0); EOS # 0.3 10^3/uL (0.0-0.5); EOS % 2.2 % (0.0-3.0); HEMATOCRIT 30.2 % (42.0-52.0); HEMOGLOBIN 9.5 g/dl (13.5-17.5); LYMPH # 0.7 10^3/uL (1.5-5.0); LYMPH % 5.4 % (24.0-44.0); MEAN CORPUSCULAR HEMOGLOBIN 33.1 pg (27.0-33.0); MEAN CORPUSCULAR HGB CONC 31.5 g/dl (32.0-36.5); MEAN CORPUSCULAR VOLUME 105.2 fl (80.0-96.0); MONO # 0.5 10^3/uL (0.0-0.8); MONO % 4.1 % (2.0-8.0); NEUTROPHILS # 10.5 10^3/uL (1.5-8.5); NEUTROPHILS % 86.5 % (36.0-66.0); PLATELET COUNT, AUTOMATED 298 10^3/uL (150-450); RED BLOOD COUNT 2.87 10^6/uL (4.30-6.10); WHITE BLOOD COUNT 12.2 10^3/uL (4.0-10.0)
[2023-01-28 06:34] LABS: BLOOD UREA NITROGEN 17 MG/DL (9-23); CALCIUM LEVEL 8.4 MG/DL (8.3-10.6); CARBON DIOXIDE LEVEL 34 MMOL/L (20-31); CHLORIDE LEVEL 106 MMOL/L (98-107); CREATININE FOR GFR 0.56 MG/DL (0.70-1.30); GLOMERULAR FILTRATION RATE > 60.0 (>49); GLUCOSE, FASTING 99 MG/DL (74-106); MAGNESIUM LEVEL 2.1 MG/DL (1.8-2.4); SODIUM LEVEL 140 MMOL/L (136-145)
[2023-01-28] MEDS: IPRATROPIUM HFA INHALER 12.9 GRAMS (ATROVENT HFA) INH SCH ×4 (08:04→19:05)
[2023-01-28] MEDS: ADVAIR HFA 115/21MCG INHALER INH SCH ×2 (08:04→19:06)
[2023-01-28] MEDS: DOCUSATE SODIUM 100MG CAPSULE PO SCH ×2 (09:00→21:53)
[2023-01-28] MEDS: MIRALAX *UNIT DOSE* 17GM PACKET PO SCH ×2 (09:00→21:00)
[2023-01-28] MEDS: METAMUCIL (PSYLLIUM) PACKET PO SCH ×2 (09:00→21:00)
[2023-01-28] MEDS: FAMOTIDINE 20 MG TAB PO SCH (10:34)
[2023-01-28] MEDS: busPIRone 10 MG TAB PO SCH ×3 (10:34→21:53)
[2023-01-28] MEDS: LACTOBACILLUS ACIDOPHILUS CAP (BACID) PO SCH (10:34)
[2023-01-28] MEDS: ALFUZOSIN HCL 10 MG PO SCH (10:35)
[2023-01-28] MEDS: ENOXAPARIN 40MG/0.4ML SYRINGE (J1650 PER 10MG) SC SCH (10:35)
[2023-01-28] MEDS: ROFLUMILAST 500 MCG TABLET (PATIENT'S OWN MED) PO SCH (10:36)
[2023-01-28] MEDS: guaiFENesin/CODEINE SYRUP 5 ML UDC PO SCH ×3 (10:53→23:56)
[2023-01-28] MEDS: ACETAMINOPHEN TAB 650MG DOSE (2X325MG) PO PRN ×2 (12:54→23:57)
[2023-01-28 14:00] VITALS: BP 106/67
[2023-01-28] MEDS: MORPHINE 30 MG TAB **MSIR PO PRN (17:27)
[2023-01-28 22:00] VITALS: BP 106/66
[2023-01-29] MEDS: ALBUTEROL SULFATE 2.5MG/0.5ML INH NEB SOLN NEB SCH ×4 (03:21→15:27)
[2023-01-29] MEDS: guaiFENesin/CODEINE SYRUP 5 ML UDC PO SCH ×2 (05:48→12:14)
[2023-01-29] MEDS: BENZONATATE 100MG CAPSULE PO SCH ×2 (05:48→14:14)
[2023-01-29] MEDS: CEFEPIME HCL 2 GM in D5W MINI-BAG PLUS 50 ML IV SCH ×2 (05:49→12:52)
[2023-01-29 06:00] VITALS: BP 128/81
[2023-01-29 06:39] LABS: BASO # 0.1 10^3/uL (0.0-0.2); BASO % 0.4 % (0.0-1.0); EOS # 0.4 10^3/uL (0.0-0.5); EOS % 2.2 % (0.0-3.0); LYMPH # 0.8 10^3/uL (1.5-5.0); LYMPH % 5.1 % (24.0-44.0); MEAN CORPUSCULAR HEMOGLOBIN 34.1 pg (27.0-33.0); MEAN CORPUSCULAR HGB CONC 32.1 g/dl (32.0-36.5); MEAN CORPUSCULAR VOLUME 106.1 fl (80.0-96.0); MONO # 0.7 10^3/uL (0.0-0.8); MONO % 4.6 % (2.0-8.0); NEUTROPHILS # 13.6 10^3/uL (1.5-8.5); NEUTROPHILS % 86.8 % (36.0-66.0); PLATELET COUNT, AUTOMATED 268 10^3/uL (150-450); RED BLOOD COUNT 2.64 10^6/uL (4.30-6.10); WHITE BLOOD COUNT 15.6 10^3/uL (4.0-10.0)
[2023-01-29 06:58] LABS: BLOOD UREA NITROGEN 19 MG/DL (9-23); CALCIUM LEVEL 8.5 MG/DL (8.3-10.6); CARBON DIOXIDE LEVEL 31 MMOL/L (20-31); CHLORIDE LEVEL 105 MMOL/L (98-107); CREATININE FOR GFR 0.65 MG/DL (0.70-1.30); GLOMERULAR FILTRATION RATE > 60.0 (>49); GLUCOSE, FASTING 84 MG/DL (74-106); POTASSIUM SERUM 4.3 MMOL/L (3.5-5.1); SODIUM LEVEL 140 MMOL/L (136-145)
[2023-01-29] MEDS: ADVAIR HFA 115/21MCG INHALER INH SCH (07:31)
[2023-01-29] MEDS: IPRATROPIUM HFA INHALER 12.9 GRAMS (ATROVENT HFA) INH SCH ×3 (07:31→15:27)
[2023-01-29] MEDS: METAMUCIL (PSYLLIUM) PACKET PO SCH (09:00)
[2023-01-29] MEDS: ROFLUMILAST 500 MCG TABLET (PATIENT'S OWN MED) PO SCH (09:00)
[2023-01-29] MEDS: MIRALAX *UNIT DOSE* 17GM PACKET PO SCH (09:00)
[2023-01-29] MEDS: FAMOTIDINE 20 MG TAB PO SCH (10:00)
[2023-01-29] MEDS: ENOXAPARIN 40MG/0.4ML SYRINGE (J1650 PER 10MG) SC SCH (10:00)
[2023-01-29] MEDS: DOCUSATE SODIUM 100MG CAPSULE PO SCH (10:00)
[2023-01-29] MEDS: busPIRone 10 MG TAB PO SCH (10:00)
[2023-01-29] MEDS: LACTOBACILLUS ACIDOPHILUS CAP (BACID) PO SCH (10:00)
[2023-01-29] MEDS: ALFUZOSIN HCL 10 MG PO SCH (10:01)
[2023-01-29] MEDS: MORPHINE 30 MG TAB **MSIR PO PRN (10:02)
[2023-01-29] MEDS ORDERED: RISATAB3 PO (11:06)
[2023-01-29] MEDS ORDERED: META1POW PO (11:06)
[2023-01-29] MEDS ORDERED: MIRA1POW3 PO (11:06)
[2023-01-29] MEDS ORDERED: GUAI1SOL7 PO (11:06)
== END 2023-01-29 16:20 | disposition home or self-care (01) | DRG 177 ==
LOC: EDBD 11:44 → M ED 11:44 → M MSPAV 17:44 → M PCU 17:44 → M MSPAV 01-24 17:45
PROVIDERS: ADMIT Student in an Organized Health Care Education/Training Program; ATTEND Student in an Organized Health Care Education/Training Program
DX: J15.6 Pneumonia due to other Gram-negative bacteria (principal); I21.A1 Myocardial infarction type 2; J96.21 Acute and chronic respiratory failure with hypoxia; E43 Unspecified severe protein-calorie malnutrition; J44.0 Chronic obstructive pulmonary disease with (acute) lower respiratory infection; R64 Cachexia; I50.32 Chronic diastolic (congestive) heart failure; K21.9 Gastro-esophageal reflux disease without esophagitis; R91.8 Other nonspecific abnormal finding of lung field; N40.0 Benign prostatic hyperplasia without lower urinary tract symptoms; Z99.81 Dependence on supplemental oxygen; H91.90 Unspecified hearing loss, unspecified ear; G89.29 Other chronic pain; M54.9 Dorsalgia, unspecified; K59.00 Constipation, unspecified; Z66 Do not resuscitate; F41.9 Anxiety disorder, unspecified; Z88.0 Allergy status to penicillin; Z88.8 Allergy status to other drugs, medicaments and biological substances; Z79.899 Other long term (current) drug therapy; Z87.891 Personal history of nicotine dependence

== ENCOUNTER 2023-02-01 20:46 | Inpatient (IN) | payer MEDICARE ==
[~2023-02-01] VITALS: Ht 167.6 cm; Wt 65.0 kg
[~2023-02-01 20:46] MED LIST changes: +ALFU10TA3 PO; +ATRO0.063 INH; +BUSP5TA PO; +GUAI1SOL7 PO; +META1POW PO; +MIRA1POW3 PO; +RISATAB3 PO
[2023-02-01] MEDS ORDERED: IPRATROPIUM 0.5MG/ALBUTEROL 2.5MG INH SOL UD 3ML (DUONEB) NEB ONE ×2 (21:00)
[2023-02-01 21:19] LABS: BASO # 0.1 10^3/uL (0.0-0.2); BASO % 0.4 % (0.0-1.0); EOS # 0.2 10^3/uL (0.0-0.5); EOS % 1.1 % (0.0-3.0); HEMATOCRIT 30.8 % (42.0-52.0); LYMPH # 0.7 10^3/uL (1.5-5.0); LYMPH % 4.8 % (24.0-44.0); MEAN CORPUSCULAR HEMOGLOBIN 33.2 pg (27.0-33.0); MEAN CORPUSCULAR HGB CONC 32.5 g/dl (32.0-36.5); MEAN CORPUSCULAR VOLUME 102.3 fl (80.0-96.0); MONO # 0.9 10^3/uL (0.0-0.8); NEUTROPHILS % 87.3 % (36.0-66.0); PLATELET COUNT, AUTOMATED 295 10^3/uL (150-450); RED BLOOD COUNT 3.01 10^6/uL (4.30-6.10); WHITE BLOOD COUNT 14.9 10^3/uL (4.0-10.0)
[2023-02-01 21:47] LABS: CK-MB VALUE MASS 4.1 NG/ML (<3.6)
[2023-02-01 21:49] LABS: ALBUMIN 2.7 G/DL (3.2-5.2); ALKALINE PHOSPHATASE 78 U/L (46-116); ALT/SGPT 22 U/L (7.0-40); AST/SGOT 30 U/L (<34); BILIRUBIN,TOTAL 0.5 MG/DL (0.3-1.2); BLOOD UREA NITROGEN 19 MG/DL (9-23); CALCIUM LEVEL 8.2 MG/DL (8.3-10.6); CARBON DIOXIDE LEVEL 31 MMOL/L (20-31); CHLORIDE LEVEL 105 MMOL/L (98-107); CPK CREATINE PHOSPHOKINASE 37 U/L (46-171); CREATININE FOR GFR 0.65 MG/DL (0.70-1.30); GLOMERULAR FILTRATION RATE > 60.0 (>49); GLUCOSE, FASTING 147 MG/DL (74-106); MAGNESIUM LEVEL 1.7 MG/DL (1.8-2.4); MB/CK RELATIVE INDEX 11.08 (< OR =4); POTASSIUM SERUM 3.8 MMOL/L (3.5-5.1); SODIUM LEVEL 142 MMOL/L (136-145); TOTAL PROTEIN 5.6 G/DL (5.7-8.2)
[2023-02-01] MEDS ORDERED: methylPREDNISolone 125MG 2ML VIAL IV ONE (22:40)
[2023-02-01] MEDS ORDERED: ISOVUE-370 76% 100ML VIAL As Ordered ONE (23:07)
[2023-02-01 23:21] LABS: CK-MB VALUE MASS 4.1 NG/ML (<3.6)
[2023-02-02] MEDS ORDERED: NS 1,000 ML IV ONE (00:55)
[2023-02-02] MEDS ORDERED: LEVALBUTEROL HFA 45MCG/ACT 15GM INHALER INH PRN (00:55)
[2023-02-02] MEDS ORDERED: ACETAMINOPHEN TAB 650MG DOSE (2X325MG) PO PRN (00:55)
[2023-02-02] MEDS: IPRATROPIUM 0.5MG/ALBUTEROL 2.5MG INH SOL UD 3ML (DUONEB) NEB SCH ×2 (02:55→08:22)
[2023-02-02] MEDS ORDERED: guaiFENesin/CODEINE SYRUP 5 ML UDC PO PRN (03:15)
[2023-02-02] MEDS ORDERED: MORPHINE 30 MG TAB **MSIR PO PRN (03:15)
[2023-02-02 05:46] LABS: HEMATOCRIT 29.2 % (42.0-52.0); HEMOGLOBIN 9.5 g/dl (13.5-17.5); MEAN CORPUSCULAR HEMOGLOBIN 33.1 pg (27.0-33.0); MEAN CORPUSCULAR HGB CONC 32.5 g/dl (32.0-36.5); MEAN CORPUSCULAR VOLUME 101.7 fl (80.0-96.0); PLATELET COUNT, AUTOMATED 264 10^3/uL (150-450); RED BLOOD COUNT 2.87 10^6/uL (4.30-6.10); WHITE BLOOD COUNT 11.6 10^3/uL (4.0-10.0)
[2023-02-02 06:05] LABS: BLOOD UREA NITROGEN 19 MG/DL (9-23); CALCIUM LEVEL 8.2 MG/DL (8.3-10.6); CARBON DIOXIDE LEVEL 29 MMOL/L (20-31); CHLORIDE LEVEL 105 MMOL/L (98-107); CREATININE FOR GFR 0.47 MG/DL (0.70-1.30); GLOMERULAR FILTRATION RATE > 60.0 (>49); GLUCOSE, FASTING 150 MG/DL (74-106); MAGNESIUM LEVEL 1.8 MG/DL (1.8-2.4); POTASSIUM SERUM 4.1 MMOL/L (3.5-5.1); SODIUM LEVEL 141 MMOL/L (136-145)
[2023-02-02] MEDS ORDERED: ALBU2.5V10 INH (06:07)
[2023-02-02] MEDS ORDERED: BUSP10TA79 PO (06:07)
[2023-02-02] MEDS ORDERED: HOME MED LIST COMPLETE! XX SCH (06:10)
[2023-02-02] MEDS ORDERED: PILL CUTTER 1 EACH XX PRN (06:40)
[2023-02-02] MEDS ORDERED: AZITHROMYCIN 250MG TABLET PO SCH (08:00)
[2023-02-02] MEDS ORDERED: methylPREDNISolone 40MG 1ML VIAL IV SCH (08:00)
[2023-02-02] MEDS ORDERED: TIOTROPIUM INHALER/CAPSULE (SPIRIVA) INH SCH (08:00)
[2023-02-02] MEDS ORDERED: ADVAIR HFA 45/21MCG INHALER INH SCH (08:00)
[2023-02-02] MEDS ORDERED: METAMUCIL (PSYLLIUM) PACKET PO SCH (09:00)
[2023-02-02] MEDS ORDERED: busPIRone 10 MG TAB PO SCH (09:00)
[2023-02-02] MEDS ORDERED: BENZONATATE 100MG CAPSULE PO SCH (09:00)
[2023-02-02] MEDS ORDERED: FAMOTIDINE 20 MG TAB PO SCH (09:00)
[2023-02-02] MEDS ORDERED: LACTOBACILLUS ACIDOPHILUS CAP (BACID) PO SCH (09:00)
[2023-02-02] MEDS ORDERED: MIRALAX *UNIT DOSE* 17GM PACKET PO SCH (09:00)
[2023-02-02] MEDS ORDERED: ENOXAPARIN 40MG/0.4ML SYRINGE (J1650 PER 10MG) SC SCH (09:00)
[2023-02-02] MEDS ORDERED: PRED10TA2 PO (12:14)
[2023-02-02] MEDS ORDERED: AZIT500T5 PO (12:14)
[2023-02-02 13:02] VITALS: BP 111/73
[2023-02-02] MEDS ORDERED: oxyCODONE 5MG TAB PO PRN (21:00)
[2023-02-07] MEDS ORDERED: MSIR30TA PO (12:58)
[2023-02-07] MEDS ORDERED: OXYC10TA12 PO (12:58)
== END 2023-02-02 13:30 | disposition home or self-care (01) | DRG 191 ==
LOC: M ED 20:46 → EDBD 20:46 → M ED INP 02-02 00:53
PROVIDERS: ADMIT Internal Medicine; ATTEND Internal Medicine
DX: J44.1 Chronic obstructive pulmonary disease with (acute) exacerbation (principal); J96.11 Chronic respiratory failure with hypoxia; Z66 Do not resuscitate; H91.90 Unspecified hearing loss, unspecified ear; K21.9 Gastro-esophageal reflux disease without esophagitis; F41.9 Anxiety disorder, unspecified; F32.A Depression, unspecified; S22.080D Wedge compression fracture of T11-T12 vertebra, subsequent encounter for fracture with routine healing; S22.050D Wedge compression fracture of T5-T6 vertebra, subsequent encounter for fracture with routine healing; S22.060D Wedge compression fracture of T7-T8 vertebra, subsequent encounter for fracture with routine healing; Z99.81 Dependence on supplemental oxygen; Z87.891 Personal history of nicotine dependence; Z79.899 Other long term (current) drug therapy; Z88.0 Allergy status to penicillin; Z88.1 Allergy status to other antibiotic agents; Z20.822 Contact with and (suspected) exposure to COVID-19

== ENCOUNTER → 2023-02-14 | Outpatient (CLI) | payer MEDICARE ==
[~2023-02-14] VITALS: Ht 162.6 cm; Wt 52.5 kg
[~2023-02-14] MED LIST changes: +ALBU2.5V10 INH; +AZIT500T5 PO; +BUSP10TA79 PO; +GUAI1SOL2 PO
[2023-02-14 14:16] VITALS: BP 115/71
== END ==
LOC: M PAL 14:09
PROVIDERS: ATTEND Nurse Practitioner Adult Health
DX: J44.9 Chronic obstructive pulmonary disease, unspecified (principal); Z51.5 Encounter for palliative care; Z99.81 Dependence on supplemental oxygen; Z87.01 Personal history of pneumonia (recurrent); S22.050A Wedge compression fracture of T5-T6 vertebra, initial encounter for closed fracture; S22.080A Wedge compression fracture of T11-T12 vertebra, initial encounter for closed fracture; Z79.891 Long term (current) use of opiate analgesic; R13.10 Dysphagia, unspecified; K59.00 Constipation, unspecified; F41.9 Anxiety disorder, unspecified; R53.1 Weakness; H91.90 Unspecified hearing loss, unspecified ear; R41.89 Other symptoms and signs involving cognitive functions and awareness; F10.29 Alcohol dependence with unspecified alcohol-induced disorder; Z79.51 Long term (current) use of inhaled steroids; Z88.0 Allergy status to penicillin; Z88.1 Allergy status to other antibiotic agents; Z66 Do not resuscitate; Z87.891 Personal history of nicotine dependence

== ENCOUNTER → 2023-02-14 | Outpatient (POV) | payer MEDICARE ==
[~2023-02-14] VITALS: Ht 162.6 cm; Wt 54.5 kg
[2023-02-14 10:30] VITALS: BP 112/48
== END ==
LOC: M IRPOV 10:18
PROVIDERS: ATTEND Radiology Diagnostic Radiology
DX: S22.050A Wedge compression fracture of T5-T6 vertebra, initial encounter for closed fracture (principal); S22.060A Wedge compression fracture of T7-T8 vertebra, initial encounter for closed fracture; S22.080A Wedge compression fracture of T11-T12 vertebra, initial encounter for closed fracture; J44.9 Chronic obstructive pulmonary disease, unspecified; Z79.52 Long term (current) use of systemic steroids; G47.33 Obstructive sleep apnea (adult) (pediatric); Z88.0 Allergy status to penicillin; Z87.891 Personal history of nicotine dependence; Z99.81 Dependence on supplemental oxygen
CPT/HCPCS: G0463 ×2

== ENCOUNTER 2023-02-21 19:46 | Inpatient (IN) | payer MEDICARE ==
[~2023-02-21] VITALS: Ht 167.6 cm; Wt 54.0 kg
[~2023-02-21 19:46] MED LIST changes: -GUAI1SOL2 PO
[2023-02-21] MEDS ORDERED: IPRATROPIUM 0.5MG/ALBUTEROL 2.5MG INH SOL UD 3ML (DUONEB) NEB ONE ×2 (20:00→20:30)
[2023-02-21] MEDS ORDERED: methylPREDNISolone 125MG 2ML VIAL IV ONE (20:00)
[2023-02-21] MEDS ORDERED: ALBUTEROL SULFATE 2.5MG/0.5ML INH NEB SOLN NEB ONE (20:00)
[2023-02-21 20:30] LABS: BASO # 0.1 10^3/uL (0.0-0.2); BASO % 0.3 % (0.0-1.0); EOS # 0.1 10^3/uL (0.0-0.5); EOS % 0.3 % (0.0-3.0); HEMATOCRIT 34.9 % (42.0-52.0); HEMOGLOBIN 10.9 g/dl (13.5-17.5); LYMPH # 0.4 10^3/uL (1.5-5.0); LYMPH % 1.5 % (24.0-44.0); MEAN CORPUSCULAR HEMOGLOBIN 32.7 pg (27.0-33.0); MEAN CORPUSCULAR HGB CONC 31.2 g/dl (32.0-36.5); MEAN CORPUSCULAR VOLUME 104.8 fl (80.0-96.0); MONO % 6.5 % (2.0-8.0); NEUTROPHILS # 21.8 10^3/uL (1.5-8.5); NEUTROPHILS % 90.8 % (36.0-66.0); PLATELET COUNT, AUTOMATED 271 10^3/uL (150-450); RED BLOOD COUNT 3.33 10^6/uL (4.30-6.10)
[2023-02-21 20:38] LABS: MONO # 1.6 10^3/uL (0.0-0.8)
[2023-02-21 20:50] LABS: CPK CREATINE PHOSPHOKINASE 30 U/L (46-171); MB/CK RELATIVE INDEX 6.66 (< OR =4)
[2023-02-21 20:51] LABS: ALBUMIN 3.2 G/DL (3.2-5.2); ALKALINE PHOSPHATASE 100 U/L (46-116); ALT/SGPT 16 U/L (7.0-40); AST/SGOT 19 U/L (<34); BILIRUBIN,DIRECT 0.7 MG/DL (<0.4); BILIRUBIN,TOTAL 1.6 MG/DL (0.3-1.2); BLOOD UREA NITROGEN 16 MG/DL (9-23); CALCIUM LEVEL 8.8 MG/DL (8.3-10.6); CARBON DIOXIDE LEVEL 30 MMOL/L (20-31); CHLORIDE LEVEL 98 MMOL/L (98-107); CREATININE FOR GFR 0.57 MG/DL (0.70-1.30); GLOMERULAR FILTRATION RATE > 60.0 (>49); GLUCOSE, FASTING 95 MG/DL (74-106); POTASSIUM SERUM 4.4 MMOL/L (3.5-5.1); SODIUM LEVEL 139 MMOL/L (136-145); TOTAL PROTEIN 6.3 G/DL (5.7-8.2)
[2023-02-21 20:53] LABS: THYROID STIMULATING HORMONE 0.682 uIU/ML (0.55-4.78); THYROXINE (T4) 12.8 UG/DL (4.5-10.9)
[2023-02-21 21:00] LABS: ABG BASE EXCESS -2.5 (-2.0-2.0); ABG HCO3 24.4 MMOL/L (22.0-26.0); ABG PARTIAL PRESSURE CO2 51.6 mmHg (35.0-45.0); ABG PARTIAL PRESSURE O2 117.7 mmHg (75.0-100.0); ABG STANDARD HCO3 22.4 MMOL/L. (22.0-26.0); ABG pH (ARTERIAL) 7.292 UNITS (7.350-7.450)
[2023-02-21 22:09] LABS: CK-MB VALUE MASS 2.3 NG/ML (<3.6)
[2023-02-21 22:11] LABS: MB/CK RELATIVE INDEX 6.38 (< OR =4)
[2023-02-21] MEDS ORDERED: MORPHINE 10MG/0.5ML ORAL CONCENTRATE SOLUTION U/D SL STA (22:31)
[2023-02-21] MEDS ORDERED: DOXYCYCLINE HYCLATE 100 MG in D5W MINI-BAG PLUS 100 ML IV ONE (23:55)
[2023-02-22] VITALS (10 sets, daily range): BP systolic 98–147; BP diastolic 67–83; TEMP 96.1–97.7; O2SAT 90–99
[2023-02-22] MEDS ORDERED: GUAI1SOL2 PO (00:05)
[2023-02-22] MEDS ORDERED: MIRA1POW3 PO (00:05)
[2023-02-22] MEDS ORDERED: HOME MED LIST COMPLETE! XX SCH (00:05)
[2023-02-22] MEDS ORDERED: NS 1,000 ML IV SCH (01:15)
[2023-02-22] MEDS ORDERED: NS 500 ML IV ONE (01:30)
[2023-02-22] MEDS: IPRATROPIUM 0.5MG/ALBUTEROL 2.5MG INH SOL UD 3ML (DUONEB) INH SCH ×6 (01:41→23:20)
[2023-02-22] MEDS: ALBUTEROL SULFATE 2.5MG/0.5ML INH NEB SOLN NEB PRN ×3 (02:19→05:27)
[2023-02-22] MEDS: methylPREDNISolone 40MG 1ML VIAL IV SCH ×2 (03:21→10:53)
[2023-02-22] MEDS: HEPARIN SOD (PORCINE) 5000UNITS/ML 1ML VIAL/SYRINGE SC SCH ×3 (06:00→21:59)
[2023-02-22] MEDS ORDERED: MORPHINE 10MG/0.5ML ORAL CONCENTRATE SOLUTION U/D PO PRN (06:05)
[2023-02-22 06:13] LABS: HEMATOCRIT 30.8 % (42.0-52.0); HEMOGLOBIN 9.8 g/dl (13.5-17.5)
[2023-02-22 06:50] LABS: BLOOD UREA NITROGEN 16 MG/DL (9-23); CALCIUM LEVEL 8.9 MG/DL (8.3-10.6); CARBON DIOXIDE LEVEL 28 MMOL/L (20-31); CHLORIDE LEVEL 100 MMOL/L (98-107); CREATININE FOR GFR 0.43 MG/DL (0.70-1.30); GLOMERULAR FILTRATION RATE > 60.0 (>49); GLUCOSE, FASTING 171 MG/DL (74-106); POTASSIUM SERUM 4.3 MMOL/L (3.5-5.1); SODIUM LEVEL 137 MMOL/L (136-145)
[2023-02-22 06:53] LABS: ABG BASE EXCESS 0.4 (-2.0-2.0); ABG HCO3 25.9 MMOL/L (22.0-26.0); ABG O2 SATURATION 95.1 % (95.0-99.0); ABG PARTIAL PRESSURE O2 80.4 mmHg (75.0-100.0); ABG STANDARD HCO3 24.8 MMOL/L. (22.0-26.0); ABG TOTAL CO2 27.3 MMOL/L (23.0-31.0); ABG pH (ARTERIAL) 7.369 UNITS (7.350-7.450)
[2023-02-22] MEDS ORDERED: ADVAIR HFA 45/21MCG INHALER INH SCH (08:00)
[2023-02-22] MEDS ORDERED: TIOTROPIUM INHALER/CAPSULE (SPIRIVA) INH SCH (08:00)
[2023-02-22] MEDS ORDERED: DOXYCYCLINE HYCLATE 100 MG in D5W MINI-BAG PLUS 100 ML IV SCH (09:00)
[2023-02-22] MEDS ORDERED: DOXYCYCLINE HYCLATE 100MG TABLET PO SCH (09:00)
[2023-02-22] MEDS ORDERED: ALFUZOSIN 10 MG PO SCH (09:00)
[2023-02-22] MEDS ORDERED: NALOXONE INJ 0.4MG/1ML VIAL IV PRN (10:20)
[2023-02-22] MEDS: MIRALAX *UNIT DOSE* 17GM PACKET PO SCH (10:35)
[2023-02-22] MEDS: FAMOTIDINE 20 MG TAB PO SCH (10:36)
[2023-02-22] MEDS: MORPHINE 30 MG TAB **MSIR PO PRN ×2 (10:52→23:55)
[2023-02-22] MEDS: ALPRAZolam 0.5 MG TAB PO PRN (10:53)
[2023-02-22] MEDS: TIOTROPIUM INHALER/CAPSULE (SPIRIVA) INH SCH (12:24)
[2023-02-22] MEDS: ADVAIR HFA 45/21MCG INHALER INH SCH ×2 (12:24→19:41)
[2023-02-22] MEDS: cefTRIAXone SOD 1 GM in D5W MINI-BAG PLUS 50 ML IV SCH (13:11)
[2023-02-22] MEDS: guaiFENesin ER 600 MG TAB PO SCH ×2 (13:13→21:59)
[2023-02-22] MEDS: PANTOPRAZOLE 40MG TAB (PROTONIX) PO SCH (13:13)
[2023-02-22] MEDS: methylPREDNISolone 125MG 2ML VIAL IV SCH ×2 (17:44→23:55)
[2023-02-22] MEDS: busPIRone 10 MG TAB PO SCH ×2 (17:44→21:59)
[2023-02-22] MEDS: SUCRALFATE 1 GM TAB PO SCH (17:44)
[2023-02-22] MEDS: DOXYCYCLINE HYCLATE 100MG TABLET PO SCH (21:59)
[2023-02-23] MEDS: IPRATROPIUM 0.5MG/ALBUTEROL 2.5MG INH SOL UD 3ML (DUONEB) INH SCH ×7 (02:19→23:16)
[2023-02-23 04:56] VITALS: BP 101/59; TEMP 97.5; O2SAT 90
[2023-02-23] MEDS: ALBUTEROL SULFATE 2.5MG/0.5ML INH NEB SOLN NEB PRN (05:16)
[2023-02-23] MEDS: methylPREDNISolone 125MG 2ML VIAL IV SCH ×4 (05:38→22:45)
[2023-02-23] MEDS: HEPARIN SOD (PORCINE) 5000UNITS/ML 1ML VIAL/SYRINGE SC SCH ×3 (05:38→22:45)
[2023-02-23 06:53] LABS: BASO % 0.1 % (0.0-1.0); HEMATOCRIT 29.4 % (42.0-52.0); HEMOGLOBIN 9.3 g/dl (13.5-17.5); LYMPH # 0.2 10^3/uL (1.5-5.0); LYMPH % 1.2 % (24.0-44.0); MEAN CORPUSCULAR HEMOGLOBIN 32.6 pg (27.0-33.0); MEAN CORPUSCULAR HGB CONC 31.6 g/dl (32.0-36.5); MEAN CORPUSCULAR VOLUME 103.2 fl (80.0-96.0); MONO # 0.5 10^3/uL (0.0-0.8); MONO % 2.7 % (2.0-8.0); NEUTROPHILS # 16.3 10^3/uL (1.5-8.5); NEUTROPHILS % 95.6 % (36.0-66.0); PLATELET COUNT, AUTOMATED 232 10^3/uL (150-450); RED BLOOD COUNT 2.85 10^6/uL (4.30-6.10)
[2023-02-23] MEDS: TIOTROPIUM INHALER/CAPSULE (SPIRIVA) INH SCH (07:04)
[2023-02-23] MEDS: ADVAIR HFA 45/21MCG INHALER INH SCH ×2 (07:05→19:37)
[2023-02-23 07:17] LABS: BLOOD UREA NITROGEN 22 MG/DL (9-23); CALCIUM LEVEL 8.4 MG/DL (8.3-10.6); CARBON DIOXIDE LEVEL 32 MMOL/L (20-31); CHLORIDE LEVEL 103 MMOL/L (98-107); GLOMERULAR FILTRATION RATE > 60.0 (>49); GLUCOSE, FASTING 191 MG/DL (74-106); POTASSIUM SERUM 3.5 MMOL/L (3.5-5.1); SODIUM LEVEL 141 MMOL/L (136-145)
[2023-02-23 08:00] VITALS: BP 108/71; TEMP 97.3; O2SAT 97
[2023-02-23] MEDS: guaiFENesin ER 600 MG TAB PO SCH ×2 (08:10→20:37)
[2023-02-23] MEDS: MIRALAX *UNIT DOSE* 17GM PACKET PO SCH (08:10)
[2023-02-23] MEDS: SUCRALFATE 1 GM TAB PO SCH ×2 (08:10→17:31)
[2023-02-23] MEDS: PANTOPRAZOLE 40MG TAB (PROTONIX) PO SCH (08:10)
[2023-02-23] MEDS: busPIRone 10 MG TAB PO SCH ×3 (08:11→20:37)
[2023-02-23] MEDS: FAMOTIDINE 20 MG TAB PO SCH (08:11)
[2023-02-23] MEDS: DOXYCYCLINE HYCLATE 100MG TABLET PO SCH ×2 (08:11→20:38)
[2023-02-23] MEDS ORDERED: ENTER DRUG NAME HERE (PATIENT'S OWN MED) INH SCH (09:00)
[2023-02-23] MEDS ORDERED: NON-FORMULARY 1 EA EA PO SCH (09:00)
[2023-02-23 09:53] VITALS: BP 118/67; TEMP 98; O2SAT 96
[2023-02-23] MEDS: MORPHINE 30 MG TAB **MSIR PO PRN ×2 (09:57→20:38)
[2023-02-23] MEDS ORDERED: NITROGLYCERIN 0.4MG SUBL TABLET SL PRN (10:00)
[2023-02-23 10:50] LABS: CK-MB VALUE MASS 4.5 NG/ML (<3.6)
[2023-02-23 10:52] LABS: MB/CK RELATIVE INDEX 16.66 (< OR =4)
[2023-02-23 12:31] VITALS: BP 132/69; TEMP 98; O2SAT 92
[2023-02-23] MEDS: cefTRIAXone SOD 1 GM in D5W MINI-BAG PLUS 50 ML IV SCH (12:34)
[2023-02-23] MEDS: ALPRAZolam 0.5 MG TAB PO PRN ×2 (12:34→20:37)
[2023-02-23 16:00] VITALS: BP 131/73; TEMP 97.2; O2SAT 94
[2023-02-23 19:18] VITALS: BP 120/73; TEMP 97.3; O2SAT 97
[2023-02-24 03:30] VITALS: BP 115/72; TEMP 97; O2SAT 99
[2023-02-24] MEDS: IPRATROPIUM 0.5MG/ALBUTEROL 2.5MG INH SOL UD 3ML (DUONEB) INH SCH ×6 (04:00→23:07)
[2023-02-24 05:42] LABS: BASO % 0.1 % (0.0-1.0); HEMATOCRIT 29.1 % (42.0-52.0); HEMOGLOBIN 8.8 g/dl (13.5-17.5); LYMPH # 0.2 10^3/uL (1.5-5.0); MEAN CORPUSCULAR HEMOGLOBIN 31.7 pg (27.0-33.0); MEAN CORPUSCULAR HGB CONC 30.2 g/dl (32.0-36.5); MEAN CORPUSCULAR VOLUME 104.7 fl (80.0-96.0); MONO # 0.4 10^3/uL (0.0-0.8); PLATELET COUNT, AUTOMATED 256 10^3/uL (150-450); RED BLOOD COUNT 2.78 10^6/uL (4.30-6.10); WHITE BLOOD COUNT 18.8 10^3/uL (4.0-10.0)
[2023-02-24 06:13] LABS: BLOOD UREA NITROGEN 23 MG/DL (9-23); CALCIUM LEVEL 8.7 MG/DL (8.3-10.6); CARBON DIOXIDE LEVEL 32 MMOL/L (20-31); CHLORIDE LEVEL 105 MMOL/L (98-107); CREATININE FOR GFR 0.48 MG/DL (0.70-1.30); GLOMERULAR FILTRATION RATE > 60.0 (>49); GLUCOSE, FASTING 141 MG/DL (74-106); POTASSIUM SERUM 3.8 MMOL/L (3.5-5.1); SODIUM LEVEL 143 MMOL/L (136-145)
[2023-02-24] MEDS: HEPARIN SOD (PORCINE) 5000UNITS/ML 1ML VIAL/SYRINGE SC SCH ×3 (06:25→21:25)
[2023-02-24] MEDS: methylPREDNISolone 125MG 2ML VIAL IV SCH ×4 (06:26→22:42)
[2023-02-24 07:44] VITALS: BP 109/64; TEMP 97.1; O2SAT 99
[2023-02-24] MEDS: TIOTROPIUM INHALER/CAPSULE (SPIRIVA) INH SCH (08:12)
[2023-02-24] MEDS: ADVAIR HFA 45/21MCG INHALER INH SCH ×2 (08:12→19:56)
[2023-02-24] MEDS: MIRALAX *UNIT DOSE* 17GM PACKET PO SCH (09:00)
[2023-02-24] MEDS: FAMOTIDINE 20 MG TAB PO SCH (09:56)
[2023-02-24] MEDS: busPIRone 10 MG TAB PO SCH ×3 (09:56→20:26)
[2023-02-24] MEDS: SUCRALFATE 1 GM TAB PO SCH ×2 (09:56→17:36)
[2023-02-24] MEDS: DOXYCYCLINE HYCLATE 100MG TABLET PO SCH ×2 (09:57→20:26)
[2023-02-24] MEDS: guaiFENesin ER 600 MG TAB PO SCH ×2 (09:57→20:26)
[2023-02-24] MEDS: PANTOPRAZOLE 40MG TAB (PROTONIX) PO SCH (09:57)
[2023-02-24 11:35] VITALS: BP 128/73; TEMP 96.6; O2SAT 98
[2023-02-24] MEDS: cefTRIAXone SOD 1 GM in D5W MINI-BAG PLUS 50 ML IV SCH (14:19)
[2023-02-24 16:00] VITALS: BP 135/76; TEMP 97; O2SAT 99
[2023-02-24] MEDS: MORPHINE 30 MG TAB **MSIR PO PRN (17:37)
[2023-02-24] MEDS: ACETAMINOPHEN TAB 650MG DOSE (2X325MG) PO PRN (19:58)
[2023-02-24 20:11] VITALS: BP 140/80; TEMP 97.4; O2SAT 100
[2023-02-24 20:50] VITALS: BP 115/78; TEMP 98.1; O2SAT 94
[2023-02-24] MEDS: ALPRAZolam 0.5 MG TAB PO PRN (23:03)
[2023-02-25] MEDS: methylPREDNISolone 125MG 2ML VIAL IV SCH (05:05)
[2023-02-25] MEDS: HEPARIN SOD (PORCINE) 5000UNITS/ML 1ML VIAL/SYRINGE SC SCH ×3 (05:05→22:00)
[2023-02-25 06:00] VITALS: BP 147/85; TEMP 97.9; O2SAT 90
[2023-02-25] MEDS: TIOTROPIUM INHALER/CAPSULE (SPIRIVA) INH SCH (07:04)
[2023-02-25] MEDS: IPRATROPIUM 0.5MG/ALBUTEROL 2.5MG INH SOL UD 3ML (DUONEB) INH SCH ×5 (07:04→23:19)
[2023-02-25] MEDS: ADVAIR HFA 45/21MCG INHALER INH SCH ×2 (07:04→20:20)
[2023-02-25 07:06] LABS: HEMOGLOBIN 8.9 g/dl (13.5-17.5); RED BLOOD COUNT 2.76 10^6/uL (4.30-6.10); WHITE BLOOD COUNT 13.9 10^3/uL (4.0-10.0)
[2023-02-25 07:07] LABS: BASO % 0.1 % (0.0-1.0); HEMATOCRIT 28.7 % (42.0-52.0); LYMPH # 0.3 10^3/uL (1.5-5.0); LYMPH % 2.1 % (24.0-44.0); MEAN CORPUSCULAR HEMOGLOBIN 32.2 pg (27.0-33.0); MONO # 0.2 10^3/uL (0.0-0.8); MONO % 1.3 % (2.0-8.0); NEUTROPHILS # 13.2 10^3/uL (1.5-8.5); NEUTROPHILS % 95.3 % (36.0-66.0); PLATELET COUNT, AUTOMATED 247 10^3/uL (150-450)
[2023-02-25 07:39] LABS: BLOOD UREA NITROGEN 27 MG/DL (9-23); CALCIUM LEVEL 8.8 MG/DL (8.3-10.6); CARBON DIOXIDE LEVEL 34 MMOL/L (20-31); CHLORIDE LEVEL 103 MMOL/L (98-107); CHOLESTEROL LEVEL 154 MG/DL (<200); CHOLESTEROL RISK RATIO 3.07 (<5); CREATININE FOR GFR 0.46 MG/DL (0.70-1.30); GLOMERULAR FILTRATION RATE > 60.0 (>49); GLUCOSE, FASTING 114 MG/DL (74-106); HDL CHOLESTEROL 50.1 MG/DL (>40); LDL CHOLESTEROL 90.3 MG/DL (<100); NON-HDL-C 103.9 MG/DL; POTASSIUM SERUM 3.9 MMOL/L (3.5-5.1); SODIUM LEVEL 142 MMOL/L (136-145); TRIGLYCERIDES LEVEL 68 MG/DL (<150)
[2023-02-25] MEDS ORDERED: MORPHINE 2 MG/ML 1ML VIAL IV ONE ×2 (08:00→12:00)
[2023-02-25] MEDS ORDERED: ONDANSETRON 4MG 2ML VIAL IV ONE (08:00)
[2023-02-25] MEDS ORDERED: KETOROLAC 30 MG/ML 1ML VIAL IV ONE (08:00)
[2023-02-25] MEDS ORDERED: oxyCODONE 5MG TAB PO ONE (08:00)
[2023-02-25] MEDS: MIRALAX *UNIT DOSE* 17GM PACKET PO SCH (08:24)
[2023-02-25] MEDS: FAMOTIDINE 20 MG TAB PO SCH (08:24)
[2023-02-25] MEDS: PANTOPRAZOLE 40MG TAB (PROTONIX) PO SCH (08:25)
[2023-02-25] MEDS: SUCRALFATE 1 GM TAB PO SCH ×2 (08:25→17:07)
[2023-02-25] MEDS: DOXYCYCLINE HYCLATE 100MG TABLET PO SCH ×2 (08:25→20:31)
[2023-02-25] MEDS: guaiFENesin ER 600 MG TAB PO SCH ×2 (08:25→20:31)
[2023-02-25] MEDS: busPIRone 10 MG TAB PO SCH ×3 (08:25→20:31)
[2023-02-25 11:30] VITALS: PULSE 97
[2023-02-25] MEDS ORDERED: MAALOX 30 ML SUSP *UDC PO ONE (11:40)
[2023-02-25] MEDS ORDERED: NITROGLYCERIN 0.4MG SUBL TABLET SL SCH (11:40)
[2023-02-25] MEDS: cefTRIAXone SOD 1 GM in D5W MINI-BAG PLUS 50 ML IV SCH (12:13)
[2023-02-25] MEDS: methylPREDNISolone 40MG 1ML VIAL IV SCH ×2 (12:16→17:07)
[2023-02-25] MEDS: NITROGLYCERIN 0.4MG SUBL TABLET SL PRN (12:16)
[2023-02-25 12:30] LABS: CK-MB VALUE MASS 1.6 NG/ML (<3.6); MB/CK RELATIVE INDEX 7.61 (< OR =4)
[2023-02-25] MEDS ORDERED: ISOVUE-370 76% 100ML VIAL As Ordered ONE (13:08)
[2023-02-25 14:00] VITALS: BP 126/67; TEMP 97.9; O2SAT 90
[2023-02-25] MEDS: MORPHINE 30 MG TAB **MSIR PO PRN (16:00)
[2023-02-25] MEDS: ALPRAZolam 0.5 MG TAB PO PRN ×2 (17:07→21:37)
[2023-02-25] MEDS: ACETAMINOPHEN TAB 650MG DOSE (2X325MG) PO PRN (17:07)
[2023-02-25] MEDS: KETOROLAC 30 MG/ML 1ML VIAL IV SCH (20:31)
[2023-02-25 21:47] VITALS: BP 134/79; TEMP 97.9; O2SAT 89
[2023-02-26] MEDS: methylPREDNISolone 40MG 1ML VIAL IV SCH ×3 (00:12→17:01)
[2023-02-26] MEDS: IPRATROPIUM 0.5MG/ALBUTEROL 2.5MG INH SOL UD 3ML (DUONEB) INH SCH ×6 (04:02→23:24)
[2023-02-26] MEDS: ALPRAZolam 0.5 MG TAB PO PRN ×2 (05:13→15:07)
[2023-02-26] MEDS: HEPARIN SOD (PORCINE) 5000UNITS/ML 1ML VIAL/SYRINGE SC SCH ×3 (05:13→22:00)
[2023-02-26 06:00] VITALS: BP 150/87; TEMP 98.1; O2SAT 93
[2023-02-26 06:16] LABS: BASO % 0.2 % (0.0-1.0); HEMATOCRIT 31.3 % (42.0-52.0); HEMOGLOBIN 9.6 g/dl (13.5-17.5); LYMPH # 0.4 10^3/uL (1.5-5.0); LYMPH % 2.5 % (24.0-44.0); MEAN CORPUSCULAR HEMOGLOBIN 32.1 pg (27.0-33.0); MEAN CORPUSCULAR HGB CONC 30.7 g/dl (32.0-36.5); MEAN CORPUSCULAR VOLUME 104.7 fl (80.0-96.0); MONO # 0.3 10^3/uL (0.0-0.8); MONO % 2.2 % (2.0-8.0); NEUTROPHILS # 13.4 10^3/uL (1.5-8.5); NEUTROPHILS % 92.3 % (36.0-66.0); PLATELET COUNT, AUTOMATED 274 10^3/uL (150-450); RED BLOOD COUNT 2.99 10^6/uL (4.30-6.10); WHITE BLOOD COUNT 14.5 10^3/uL (4.0-10.0)
[2023-02-26 06:45] LABS: BLOOD UREA NITROGEN 28 MG/DL (9-23); CALCIUM LEVEL 9.1 MG/DL (8.3-10.6); CARBON DIOXIDE LEVEL 33 MMOL/L (20-31); CHLORIDE LEVEL 103 MMOL/L (98-107); CREATININE FOR GFR 0.55 MG/DL (0.70-1.30); GLOMERULAR FILTRATION RATE > 60.0 (>49); GLUCOSE, FASTING 125 MG/DL (74-106); POTASSIUM SERUM 3.7 MMOL/L (3.5-5.1); SODIUM LEVEL 142 MMOL/L (136-145)
[2023-02-26] MEDS: ALBUTEROL SULFATE 2.5MG/0.5ML INH NEB SOLN NEB PRN (07:59)
[2023-02-26] MEDS: ADVAIR HFA 45/21MCG INHALER INH SCH ×2 (08:00→20:11)
[2023-02-26] MEDS: TIOTROPIUM INHALER/CAPSULE (SPIRIVA) INH SCH (08:00)
[2023-02-26] MEDS: MIRALAX *UNIT DOSE* 17GM PACKET PO SCH (08:46)
[2023-02-26] MEDS: CEFDINIR 300 MG CAP (OMNICEF) PO SCH ×2 (08:47→20:03)
[2023-02-26] MEDS: busPIRone 10 MG TAB PO SCH ×3 (08:47→20:03)
[2023-02-26] MEDS: FAMOTIDINE 20 MG TAB PO SCH (08:47)
[2023-02-26] MEDS: SUCRALFATE 1 GM TAB PO SCH ×2 (08:47→17:00)
[2023-02-26] MEDS: PANTOPRAZOLE 40MG TAB (PROTONIX) PO SCH (08:47)
[2023-02-26] MEDS: KETOROLAC 30 MG/ML 1ML VIAL IV SCH ×2 (08:47→20:03)
[2023-02-26] MEDS: DOXYCYCLINE HYCLATE 100MG TABLET PO SCH (08:47)
[2023-02-26] MEDS: guaiFENesin ER 600 MG TAB PO SCH ×2 (08:47→20:03)
[2023-02-26 14:00] VITALS: BP 150/89; TEMP 98.1; O2SAT 98
[2023-02-26] MEDS: MORPHINE 30 MG TAB **MSIR PO PRN (18:24)
[2023-02-26] MEDS ORDERED: CALCIUM CARBONATE 500 MG CHEW U/D PO ONE (19:50)
[2023-02-26] MEDS: MOM 30ML SUSPENSION UDC PO SCH ×2 (20:00→20:03)
[2023-02-26] MEDS: SENOKOT S TAB PO SCH (20:03)
[2023-02-26 21:00] VITALS: BP 148/86; O2SAT 96
[2023-02-26 22:00] VITALS: BP 149/86; TEMP 98.1; O2SAT 96
[2023-02-27] MEDS: MOM 30ML SUSPENSION UDC PO SCH
[2023-02-27] MEDS: IPRATROPIUM 0.5MG/ALBUTEROL 2.5MG INH SOL UD 3ML (DUONEB) INH SCH ×4 (03:18→15:09)
[2023-02-27] MEDS: methylPREDNISolone 40MG 1ML VIAL IV SCH (05:12)
[2023-02-27] MEDS: HEPARIN SOD (PORCINE) 5000UNITS/ML 1ML VIAL/SYRINGE SC SCH ×2 (05:12→14:00)
[2023-02-27 06:00] VITALS: BP 129/73; TEMP 97.9; O2SAT 95
[2023-02-27] MEDS: ALPRAZolam 0.5 MG TAB PO PRN (06:51)
[2023-02-27 07:46] LABS: BASO # 0.1 10^3/uL (0.0-0.2); BASO % 0.5 % (0.0-1.0); HEMOGLOBIN 11.2 g/dl (13.5-17.5); LYMPH # 0.6 10^3/uL (1.5-5.0); LYMPH % 3.6 % (24.0-44.0); MEAN CORPUSCULAR HGB CONC 30.3 g/dl (32.0-36.5); MEAN CORPUSCULAR VOLUME 105.7 fl (80.0-96.0); MONO # 0.7 10^3/uL (0.0-0.8); MONO % 3.9 % (2.0-8.0); NEUTROPHILS # 14.9 10^3/uL (1.5-8.5); NEUTROPHILS % 87.4 % (36.0-66.0); PLATELET COUNT, AUTOMATED 327 10^3/uL (150-450); WHITE BLOOD COUNT 17.1 10^3/uL (4.0-10.0)
[2023-02-27] MEDS: TIOTROPIUM INHALER/CAPSULE (SPIRIVA) INH SCH (07:55)
[2023-02-27] MEDS: ADVAIR HFA 45/21MCG INHALER INH SCH (07:56)
[2023-02-27 08:02] LABS: BLOOD UREA NITROGEN 27 MG/DL (9-23); CALCIUM LEVEL 8.4 MG/DL (8.3-10.6); CARBON DIOXIDE LEVEL 37 MMOL/L (20-31); CHLORIDE LEVEL 101 MMOL/L (98-107); CREATININE FOR GFR 0.51 MG/DL (0.70-1.30); GLOMERULAR FILTRATION RATE > 60.0 (>49); GLUCOSE, FASTING 97 MG/DL (74-106); POTASSIUM SERUM 4.3 MMOL/L (3.5-5.1); SODIUM LEVEL 144 MMOL/L (136-145)
[2023-02-27] MEDS: MIRALAX *UNIT DOSE* 17GM PACKET PO SCH (09:00)
[2023-02-27] MEDS: CEFDINIR 300 MG CAP (OMNICEF) PO SCH (09:16)
[2023-02-27] MEDS: guaiFENesin ER 600 MG TAB PO SCH (09:16)
[2023-02-27] MEDS: SUCRALFATE 1 GM TAB PO SCH ×2 (09:17→18:04)
[2023-02-27] MEDS: PANTOPRAZOLE 40MG TAB (PROTONIX) PO SCH (09:17)
[2023-02-27] MEDS: busPIRone 10 MG TAB PO SCH ×2 (09:17→18:04)
[2023-02-27] MEDS: SENOKOT S TAB PO SCH (09:17)
[2023-02-27] MEDS: FAMOTIDINE 20 MG TAB PO SCH (09:18)
[2023-02-27] MEDS: KETOROLAC 30 MG/ML 1ML VIAL IV SCH (09:19)
[2023-02-27] MEDS ORDERED: predniSONE 20 MG TAB PO SCH (12:00)
[2023-02-27 14:10] VITALS: BP 136/92
[2023-02-27] MEDS: NITROGLYCERIN 0.4MG SUBL TABLET SL PRN (14:10)
[2023-02-27 14:17] VITALS: BP 136/92; TEMP 98.6; O2SAT 95
[2023-02-27 14:19] VITALS: BP 136/92; O2SAT 95
[2023-02-27] MEDS ORDERED: NITR4TASL SL (16:35)
[2023-02-27] MEDS ORDERED: CEFD300CAP PO (16:35)
[2023-02-27] MEDS ORDERED: MUCI600T31 PO (16:35)
[2023-02-27] MEDS ORDERED: PANT40TA29 PO (16:35)
[2023-02-27] MEDS ORDERED: PRED10TA2 PO (16:35)
[2023-02-27] MEDS ORDERED: SUCR1TA PO (16:35)
[2023-02-27] MEDS ORDERED: SENN-52 PO (16:35)
[2023-02-27] MEDS ORDERED: ALBU8.5H INH (16:38)
[2023-02-27] MEDS ORDERED: PRED20TA PO (16:38)
[2023-03-14] MEDS ORDERED: OXYC10TA12 PO (06:45)
== END 2023-02-27 18:40 | disposition home health service (06) | DRG 190 ==
LOC: EDBD 19:46 → M ED 19:46 → M ED INP 19:47 → M PCU 02-22 02:10 → OBSVTOIN 02-22 12:52 → M MS5PR 02-24 20:42
PROVIDERS: ADMIT Internal Medicine; ATTEND General Practice
DX: J44.0 Chronic obstructive pulmonary disease with (acute) lower respiratory infection (principal); J18.1 Lobar pneumonia, unspecified organism; E43 Unspecified severe protein-calorie malnutrition; J96.11 Chronic respiratory failure with hypoxia; J96.12 Chronic respiratory failure with hypercapnia; R64 Cachexia; S22.080A Wedge compression fracture of T11-T12 vertebra, initial encounter for closed fracture; J44.1 Chronic obstructive pulmonary disease with (acute) exacerbation; Z66 Do not resuscitate; I27.81 Cor pulmonale (chronic); D64.9 Anemia, unspecified; F41.9 Anxiety disorder, unspecified; Z79.891 Long term (current) use of opiate analgesic; Z87.891 Personal history of nicotine dependence; Z79.899 Other long term (current) drug therapy; Z88.0 Allergy status to penicillin; Z88.1 Allergy status to other antibiotic agents; Z20.822 Contact with and (suspected) exposure to COVID-19; Z99.81 Dependence on supplemental oxygen

== ENCOUNTER 2023-03-18 14:40 | Emergency (ER) | payer MEDICARE ==
[~2023-03-18] VITALS: Ht 167.6 cm; Wt 54.5 kg
[~2023-03-18 14:40] MED LIST changes: +CEFD300CAP PO; +GUAI1SOL2 PO; +MUCI600T31 PO; +NITR4TASL SL; +PANT40TA29 PO; +SENN-52 PO; +SUCR1TA PO
[2023-03-18] MEDS ORDERED: FUROSEMIDE 40MG/4ML VIAL IV ONE (15:10)
[2023-03-18 15:43] LABS: HEMATOCRIT 32.3 % (42.0-52.0); HEMOGLOBIN 10.3 g/dl (13.5-17.5); LYMPH # 0.1 10^3/uL (1.5-5.0); LYMPH % 1.7 % (24.0-44.0); MEAN CORPUSCULAR HEMOGLOBIN 32.1 pg (27.0-33.0); MEAN CORPUSCULAR HGB CONC 31.9 g/dl (32.0-36.5); MEAN CORPUSCULAR VOLUME 100.6 fl (80.0-96.0); MONO # 0.2 10^3/uL (0.0-0.8); NEUTROPHILS # 7.8 10^3/uL (1.5-8.5); NEUTROPHILS % 95.8 % (36.0-66.0); PLATELET COUNT, AUTOMATED 191 10^3/uL (150-450); RED BLOOD COUNT 3.21 10^6/uL (4.30-6.10); WHITE BLOOD COUNT 8.1 10^3/uL (4.0-10.0)
[2023-03-18 16:10] LABS: ALKALINE PHOSPHATASE 77 U/L (46-116); ALT/SGPT 17 U/L (7.0-40); AST/SGOT 14 U/L (<34); BILIRUBIN,DIRECT 0.3 MG/DL (<0.4); BILIRUBIN,TOTAL 0.9 MG/DL (0.3-1.2); BLOOD UREA NITROGEN 22 MG/DL (9-23); CALCIUM LEVEL 9.4 MG/DL (8.3-10.6); CARBON DIOXIDE LEVEL 34 MMOL/L (20-31); CHLORIDE LEVEL 99 MMOL/L (98-107); CK-MB VALUE MASS 2.2 NG/ML (<3.6); CPK CREATINE PHOSPHOKINASE 26 U/L (46-171); CREATININE FOR GFR 0.49 MG/DL (0.70-1.30); GLOMERULAR FILTRATION RATE > 60.0 (>49); GLUCOSE, FASTING 110 MG/DL (74-106); MB/CK RELATIVE INDEX 8.46 (< OR =4); POTASSIUM SERUM 4.1 MMOL/L (3.5-5.1); SODIUM LEVEL 138 MMOL/L (136-145); TOTAL PROTEIN 5.6 G/DL (5.7-8.2)
[2023-03-18 16:12] LABS: THYROXINE (T4) 13.8 UG/DL (4.5-10.9)
[2023-03-18] MEDS ORDERED: IPRATROPIUM 0.5MG/ALBUTEROL 2.5MG INH SOL UD 3ML (DUONEB) NEB ONE (16:15)
[2023-03-18] MEDS ORDERED: LIDOCAINE 2% 5ML JELLY UROJET TOP ONE (16:55)
[2023-03-18 17:25] LABS: CK-MB VALUE MASS 1.7 NG/ML (<3.6); MB/CK RELATIVE INDEX 6.07 (< OR =4)
[2023-03-18] MEDS ORDERED: MORPHINE 2 MG/ML 1ML VIAL IV ONE (17:50)
[2023-03-18] MEDS ORDERED: oxyCODONE 5MG TAB PO ONE (19:15)
[2023-03-18 19:41] VITALS: BP 132/91; TEMP 96.5; O2SAT 96
== END 2023-03-18 19:48 | disposition home or self-care (01) ==
LOC: M ED 14:40
DX: J44.9 Chronic obstructive pulmonary disease, unspecified (principal); R22.43 Localized swelling, mass and lump, lower limb, bilateral; Z87.442 Personal history of urinary calculi; Z79.899 Other long term (current) drug therapy; Z88.0 Allergy status to penicillin; Z88.1 Allergy status to other antibiotic agents
CPT/HCPCS: 71045; 80048; 80076; 81001; 82550; 82553; 83605; 83880; 84436; 84443; 84484; 85025; 87040; 87486; 87581; 87633; 87798; 93005; 93041; 94640; 94760; 96374; 96375; 99285; J1940

== ENCOUNTER → 2023-03-22 | Outpatient (CLI) | payer MEDICARE | LOC: M PAL 13:00 | PROVIDERS: ATTEND Nurse Practitioner Adult Health | DX: J44.9 Chronic obstructive pulmonary disease, unspecified (principal); Z51.5 Encounter for palliative care; M48.54XD Collapsed vertebra, not elsewhere classified, thoracic region, subsequent encounter for fracture with routine healing; G89.29 Other chronic pain; Z66 Do not resuscitate; Z79.891 Long term (current) use of opiate analgesic; Z79.899 Other long term (current) drug therapy; Z87.891 Personal history of nicotine dependence; Z88.0 Allergy status to penicillin; Z88.8 Allergy status to other drugs, medicaments and biological substances; Z79.51 Long term (current) use of inhaled steroids ==